=== PATIENT | female | born 1965 | race Caucasian/White ===

== ENCOUNTER 2024-05-30 08:56 | Outpatient (AMB) | payer OTHER, SELFPAY ==
--- NOTE | 2024-05-30 09:04 | A.OFFPC_ITS ---
Vital Signs 05/30/24 09:13 05/30/24 09:15 Height 5 ft 4.76 in Weight 150 lb 8 oz BMI 25.2 BP 128/90 H 130/86 Blood Pressure Location Rt brachial Rt brachial Position Sitting Sitting Respiration 14 Pulse 83 Pulse Source Pulse Oximeter Temp 98 F Temp Source Oral Pulse Oximetry (%) 96 Oxygen Delivery Method Room Air Intake Visit Reasons: Establish care Intake Note: New patient visit Engineering Aide Required: No Allergies No Known Allergies Allergy (Verified 05/30/24 09:05) Medication List - Last Reconciled 05/30/24 by Scarlett Anguiano PA-C acetaminophen (Tylenol Extra Strength) 1,000 mg PO Q6H PRN amitriptyline 10 mg PO BEDTIME atorvastatin 10 mg PO DAILY duloxetine 30 mg PO DAILY metformin ER 500 mg PO DAILY omeprazole 40 mg PO DAILY Tobacco use date assessed: 05/30/24 Dental Screening Dental Screen Date: 05/30/24 Did you have a dental visit in the last 12 months?: Yes Did you have a dental problem in the last 6 months where you did not have access to dental care?: No Was dental information given to patient?: Patient has dentist HPI Establish care HPI Details Patient is a 58 year old female with a significant past medical history of cholelithiasis, dyslipidemia, type 2 diabetes, hypertension, GERD and chronic sinusitis presenting today for a follow up to reestablish care. -She states that that her she has been s ick for the last 3-4 weeks with covid sx and states overall is getting better but has a lingering cough and states she now has thrush. She did go to urgent care and was dx with a uri and told likely viral. Her was positive for COVID but she never was so she thinks that she did have COVID. Neuro: She was last seen by Jan[facility] in October 2023 where she was evaluated for a new daily headache for the last 2 months. She did have labs and a repeat MRI which she states was normal. She is currently on amitriptyline 10 mg at night.. She states that she also now follows with Neurology and has an appointment in July where they are going to discuss stopping the amitriptyline. She has been doing physical therapy for her headaches and that has made a big difference. Whenever she starts to get a symptoms she starts stretching. CV: Blood pressure today in the office is 130/86. Her blood pressures have been elevated in the past and she states that she does not want to go on any medications for this. She likes to control this with diet. Cholesterol is managed with atorvastatin 10 mg. No myalgias. Last LDL less than 100. She was off of her medication for about 3 months but has been taking it for the last week. Endo: She is currently on metformin 500 mg daily and states her last A1c was ?normal ?. She was off for 3 months and restarted last week. She is not monitor blood sugars at home. GI: Has a history of GERD and is on omeprazole. She did follow with GI in the past for this. Mammo: UTD, follows at [facility] Bone density: 2022- states it was WNL Pap: overdue- states she will book Colonoscopy: due in 2 years, had this with Dr. [facility] Medical History (Updated 05/30/24 @ 10:09 by Scarlett Anguiano PA-C) Adhesion of tendon of hand Type 2 diabetes mellitus Multiple rib fractures HTN (hypertension) Hyperglycemia Dyslipidemia Conjunctivitis Cholelithiasis Acute sinusitis Surgical History (Updated 05/29/24 @ 14:36 by Mary Gramajo CMA) Hx of breast reduction, elective Family History (Updated 05/30/24 @ 09:12 by Mary Gramajo CMA) Mother HTN (hypertension) Glioblastoma Father HTN (hypertension) Diabetes Sister Breast cancer Brother Heart attack Other FH: mental illness Social History Housing: [place] ([facility]) Patient Tobacco Use Status: Never used Tobacco e-Cigarette/Vaping Use: Never Used Second Hand Smoke Exposure: No service: No Current occupational status: employed Current occupation: [employer] Current occupational exposures/hazards: Yes Cognitive needs: No Hearing needs: Yes (deaf in right ear) Vision needs: Yes (glasses) Questionnaire PHQ-9 Over the last 2 weeks, how often have you been bothered by any of the following problems? 1. Little interest or pleasure in doing things: not at all 2. Feeling down, depressed, or hopeless: not at all 3. Trouble falling or staying asleep, or sleeping too much: not at all 4. Feeling tired or having little energy: several days 5. Poor appetite or overeating: several days 6. Feeling bad about yourself - or that you are a failure or have let yourself or your family down: not at all 7. Trouble concentrating on things, such as reading the newspaper or watching television: not at all 8. Moving or speaking so slowly that other people could have noticed. Or the opposite - being so fidgety or restless that you have been moving around a lot more than usual: not at all 9. Thoughts that you would be better off or of hurting yourself in some way: not at all Total score: 2 Depression Screening Interpretation: Positive Depression Screening Done: Yes 66355 - PHQ-9 Billing: Yes Source: Developed by Drs. Noel Solorio, Andreina Lamas, Marlon Suarez and colleagues, with an educational smiley from [employer]. Thrive Questionnaire Date Thrive assessed: 05/25/24 I am a: Patient What is your living situation today?: I have a steady place to live Within the past 12 months, did the food you bought not last and you didn't have the money to get more?: Never true Within the past 12 months, did you worry whether your food would run out before you got money to buy more?: Never true Do you have trouble paying for medicines?: No Do you have trouble getting transportation to medical appointments?: No Do you have trouble paying your heating and electricity bill?: No Do you have trouble taking care of your child, family member or friend?: No Do you have trouble with day-to-day activities such as bathing, preparing meals, shopping, managing finances, etc.?: No Are you currently unemployed and looking for a job?: No Are you interested in more education?: No Please select the resources that you would like help with: None Currently or been in a relationship where the following occur: No concerns reported THRIVE Score: 0 AUDIT C Alcohol Use Questionnaire (AUDIT-C) 1. How often do you have a drink containing alcohol?: Monthly or less 2. How many drinks containing alcohol do you have on a typical day when you are drinking?: 1 or 2 3. How often do you have six or more drinks on one occasion?: Never Total Score: 1 AARON-7 AMB Questionnaire AARON-7 Date AARON - 7 assessed: 05/30/24 Feeling nervous, anxious, or on edge: 0 = Not at all Not being able to stop or control worryin = Not at all Worrying too much about different things: 0 = Not at all Trouble relaxin = Not at all Being so restless that it is hard to sit still: 0 = Not at all Feeling afraid as if something awful might happen: 0 = Not at all Source: Developed by Drs. Noel Solorio, Andreina Lamas, Marlon Suarez and colleagues, with an educational smiley from [employer]. AARON-7 Assessment Billing AARON-7 Assessment Tool: AARON-7 Assessment 63122 Physical exam (Primary Care) Vital Signs: Last Vital Signs Temp 98 F 05/30/24 09:13 Pulse 83 05/30/24 09:13 Resp 14 05/30/24 09:13 BP 130/86 05/30/24 09:15 Pulse Ox 96 05/30/24 09:13 Oxygen Delivery Method Room Air 05/30/24 09:13 BMI result Body Mass Index 25.2 Tobacco/Smoking Status: Tobacco use Status Tobacco use date assessed 05/30/24 05/30/24 09:12 Patient Tobacco Use Status Never used Tobacco 05/30/24 09:12 e-Cigarette/Vaping Use Never Used 05/30/24 09:12 PHQ-9: PHQ-9 Score PHQ-9: Total score 2 05/30/24 09:12 Depression Screening Interpretation: Positive Thrive Assessment: Date of Thrive Assessment Date Thrive assessed 05/25/24 05/30/24 09:12 Currently or been in a relationship where the following occur: No concerns reported Const Orientation/consciousness: patient oriented x3 HENMT Other: Nasal mucosa WNL. She does have white patches on the dorsum of the tongue. Head: Yes No palpable skull fracture present Ears: hearing grossly normal bilaterally and TM's normal bilaterally Neck Thyroid: Thyroid normal Lymphatic: no lymphadenopathy noted Resp Auscultation: clear to auscultation bilaterally Cardio Rate: regular rate Rhythm: regular rhythm Heart sounds: S1 normal heart sound present and S2 normal heart sound present GI Inspection: Yes normal to inspection Palpation (GI): Soft to palpation and Other GI palpation findings present (nontender, no cva tenderness) Auscultation: normoactive bowel sounds Rectal Exam - Female: deferred Skin General skin exam: no rashes or lesions noted Neuro General: patient oriented x3, gait normal and no focal motor deficits Coding Level of Care Code Est Pt Level 4 (85306) Complex EM visit Add On G2211 Diagnoses Dyslipidemia E78.5 Controlled type 2 diabetes mellitus without complication, without long-term current use of insulin E11.9 Diabetes mellitus longterm insulin use: without terminal make up operator use Diabetes mellitus complication status: without complication Viral URI with cough J06.9 Thrush B37.0 Additional Codes AARON-7 Assessment Billing - AARON-7 Assessment Tool: AARON-7 Assessment [id number] ([id number]) Assessment & Plan Assessment & Plan (1) Dyslipidemia: Code(s): E78.5 - Hyperlipidemia, unspecified Category: Medical Plan: Was well-controlled with atorvastatin. Last LDL was 80. We will recheck labs today. (2) Controlled type 2 diabetes mellitus: Code(s): E11.9 - Type 2 diabetes mellitus without complications Category: Medical Qualifiers: Diabetes mellitus terminal make up operator insulin use: without terminal make up operator use Diabetes mellitus complication status: without complication Qualified Code(s): E11.9 - Type 2 diabetes mellitus without complications Plan: A1c ordered today. Currently on metformin. Works hard on diet. We will follow up pending test results. (3) Viral URI with cough: Code(s): J06.9 - Acute upper respiratory infection, unspecified Plan: Reports symptom improvement. No physical exam abnormalities noted for signs of a bacterial infection. We will start on Tessalon Perles per her request us it does help with her intermittent cough. (4) Thrush: Code(s): B37.0 - Candidal stomatitis Plan: Nystatin ordered Orders: Orders Microalbumin, Random (w Creat) Today E11.9 - Type 2 diabetes mellitus without complications, E78.5 - Hyperlipidemia, unspecified, I10 - Essential (primary) hypertension Lipid Panel Today E11.9 - Type 2 diabetes mellitus without complications, E78.5 - Hyperlipidemia, unspecified, I10 - Essential (primary) hypertension Comprehensive [place]. Panel Fast Today E11.9 - Type 2 diabetes mellitus without complications, E78.5 - Hyperlipidemia, unspecified, I10 - Essential (primary) hypertension Complete Blood Count Auto Diff Today E11.9 - Type 2 diabetes mellitus without complications, E78.5 - Hyperlipidemia, unspecified, I10 - Essential (primary) hypertension Hemoglobin A1c Today E11.9 - Type 2 diabetes mellitus without complications, E78.5 - Hyperlipidemia, unspecified, I10 - Essential (primary) hypertension TSH reflex Free T4 Today E11.9 - Type 2 diabetes mellitus without complications, E78.5 - Hyperlipidemia, unspecified, I10 - Essential (primary) hypertension Medications: New nystatin swish and spit 5 mL PO QID 14 days 473 mL 0RF albuterol sulfate 90 mcg/actuation 2 puffs inhalation Q6H PRN 8.5 grams 1RF shortness of breath or wheezing omeprazole 20 mg PO BID 90 days 180 caps 0RF benzonatate 100 mg PO TID PRN 30 caps 0RF cough
[2024-05-30 09:13] VITALS: BP 128/90; PULSE 83; RESP 14; TEMP 36.6; O2SAT 96; BMI 25.2
[2024-05-30 09:15] VITALS: BP 130/86
== END 2024-05-30 10:06 | disposition home or self-care (01) ==
PROVIDERS: PCP Physician Assistant; Visit Provider Physician Assistant
DX: E78.5 Hyperlipidemia, unspecified (principal); E11.9 Type 2 diabetes mellitus without complications; J06.9 Acute upper respiratory infection, unspecified; B37.0 Candidal stomatitis

== ENCOUNTER → 2024-05-30 08:56 | Outpatient (BNVA) | payer OTHER, SELFPAY | PROVIDERS: PCP Physician Assistant; Visit Provider Physician Assistant ==

== ENCOUNTER 2024-05-30 09:55 | Outpatient (REF) | payer OTHER, SELFPAY ==
[2024-05-30 11:42] LABS: MANUAL DIFF FLAG NO
[2024-05-30 11:56] LABS: Basophils Percent Auto 0.9 % (0-2); Eosinophils Absolute Auto 0.1 X10*3/uL (0.0-0.4); Eosinophils Percent Auto 1.8 % (0-4); Hematocrit 41.6 % (37.0-47.0); Hemoglobin 14.4 g/dl (12.0-16.0); Imm Gran Abs Auto 0.02 X10*3/uL (0.00-0.03); Imm Gran Pct Auto 0.5 % (0.0-0.4); Lymphocytes Absolute Auto 1.7 X10*3/uL (1.2-4.9); Lymphocytes Percent Auto 37.5 % (20-40); Mean Corpuscular HGB Conc 34.6 g/dl (31.0-35.0); Mean Corpuscular Volume 86.7 fL (80.0-98.0); Mean Platelet Volume 11.2 fL (9.4-12.3); Monocytes Absolute Auto 0.4 X10*3/uL (0.1-1.2); Monocytes Percent Auto 8.4 % (2-11); Neutrophils Absolute Auto 2.3 x10*3/uL (2.0-8.3); Neutrophils Percent Auto 50.9 % (45-73); Platelet Count 222 X10*3/uL (160-400); Red Cell Distribution Width 11.9 % (11.0-16.0); White Blood Count 4.4 X10*3/uL (4.8-10.8)
[2024-05-30 12:07] LABS: Creatinine Urine 138.59 mg/dL; Microalbum/Creatinine Ratio Ur 12.2 ug/mg cr (<30)
[2024-05-30 12:11] LABS: Estimated Average Glucose 194 mg/dL; Hemoglobin A1C 254.1321 umol/L; Hemoglobin A1c % 8.4 % (<6.0); Total Hemoglobin (HGBA1C) 3691.7812 umol/L
[2024-05-30 12:17] LABS: Alanine Aminotransferase 33 U/L (0-31); Albumin Level 4.1 g/dL (3.5-5.0); Alkaline Phosphatase 122 U/L (39-117); Anion Gap 10 (12-20); Aspartate Amino Transferase 26 U/L (5-31); Bilirubin Total 1.3 mg/dL (0.0-1.0); Blood Urea Nitrogen 9 mg/dL (9-16); Calcium 9.5 mg/dL (8.4-10.2); Carbon Dioxide 30 mmol/L (22-29); Chloride 104 mmol/L (96-108); Cholesterol 200 mg/dL (<200); Estimated Glomerular Filt Rate > 60; Glucose Fasting 270 mg/dL (60-99); HDL Cholesterol 65 mg/dL (>40); LDL Cholesterol Calculated 114 mg/dL (<100); Potassium 4.1 mmol/L (3.3-5.1); Sodium 140 mmol/L (135-145); Total Protein 6.9 g/dL (6.5-8.0); Triglycerides 107 mg/dL (<150)
== END 2024-05-30 09:56 | disposition home or self-care (01) ==
LOC: HO.WFDLDS 09:55
PROVIDERS: Visit Provider Physician Assistant
DX: E78.5 Hyperlipidemia, unspecified (principal); E11.9 Type 2 diabetes mellitus without complications; I10 Essential (primary) hypertension; J06.9 Acute upper respiratory infection, unspecified; B37.0 Candidal stomatitis; Z79.84 Long term (current) use of oral hypoglycemic drugs; Z79.899 Other long term (current) drug therapy
CPT/HCPCS: 36415; 80053; 80061; 82043; 82570; 83036; 84443; 85025; 96127

== ENCOUNTER 2024-06-13 09:25 | Outpatient (REF) | payer OTHER, SELFPAY ==
--- NOTE | ~2024-06-13 | US_ITS ---
EXAMINATION: US ABDOMEN COMPLETE CLINICAL INFORMATION: Other specified abnormal findings of blood chemistry COMPARISON: None available. TECHNIQUE: Real-time imaging of the abdominal viscera. FINDINGS: PANCREAS: Visualized portions are unremarkable. ABDOMINAL AORTA: The proximal, mid, and distal segments are normal in caliber. INFERIOR VENA CAVA: Visualized portions are normal. LIVER: The liver is normal in size. The liver contour is normal. There is diffuse increased liver parenchymal echogenicity, consistent with hepatic steatosis. No focal hepatic lesion. There is no intrahepatic biliary duct dilatation seen. GALLBLADDER: The gallbladder is physiologically distended. Multiple mobile gallstones are present. No evidence of gallbladder wall thickening or pericholecystic fluid. COMMON BILE DUCT: Normal in caliber measuring 0.5 cm in diameter. RIGHT KIDNEY: No hydronephrosis. No renal calculi or focal parenchymal lesions. The kidney measures 10.3 cm in maximum dimension. LEFT KIDNEY: No hydronephrosis. No renal calculi or focal parenchymal lesions. The kidney measures 10.1 cm in maximum dimension. SPLEEN: The normal-appearing spleen measures 10.4 cm in maximum dimension. FREE FLUID: None. US/US abdomen complete IMPRESSION: 1. Hepatic steatosis. 2. Cholelithiasis without evidence of acute cholecystitis. Electronically signed by: Gina Reed DO 07/20/2024 04:44 PM [facility]
== END 2024-06-13 09:26 | disposition home or self-care (01) ==
LOC: HO.US 09:25
PROVIDERS: PCP Physician Assistant; Visit Provider Physician Assistant
DX: R79.89 Other specified abnormal findings of blood chemistry (principal); E11.9 Type 2 diabetes mellitus without complications
CPT/HCPCS: 76700

== ENCOUNTER 2024-07-18 10:18 | Outpatient (AMB) | payer OTHER, SELFPAY ==
--- NOTE | 2024-07-18 10:19 | A.OFFVIS_ITS ---
Vital Signs 07/18/24 10:26 Height 5 ft 6 in Weight 159 lb 6 oz BMI 25.7 Intake Visit Reasons: Calculus of gallbladder Intake Note: This patient presents for Calculus of gallbladder. Pt c/o; reports constant RUQ pain radiates towards back, reports occasional nausea specifically in the morning, reports loss of appetite. 06/13/2024: Abd U/S Slip Maker Required: No Accompanied by: Self / Same As Patient Allergies No Known Allergies Allergy (Verified 07/18/24 10:30) Medication List - Last Reconciled 07/18/24 by Roe Heck MD acetaminophen (Tylenol Extra Strength) 1,000 mg PO Q6H PRN albuterol sulfate 90 mcg/actuation 2 puffs inhalation Q6H PRN amitriptyline 10 mg PO BEDTIME atorvastatin 10 mg PO DAILY benzonatate 100 mg PO TID PRN blood sugar diagnostic (FreeStyle Lite Strips) Use daily As directed to check blood glucose blood-glucose meter (FreeStyle Lite Meter kit) Use daily As directed to check blood sugars duloxetine 30 mg PO DAILY lancets (FreeStyle Lancets) use daily as directed to check blood glucose metformin ER 500 mg PO BID nystatin 5 mL PO QID 14 days omeprazole 20 mg PO BID 90 days HPI HPI Calculus of gallbladder: Details: [age] year old female referred for gallstones. She has had this occasional low intensity pain on the right upper quadrant and right side of the abdomen all the way to the back on and off for several months. She has a history of abnormal LFTs as well. Therefore had an ultrasound done by her primary care physician last month. This has not been officially read but this seems to show gallstones She was therefore referred to me She also had a CAT scan done earlier this year in [facility]. She was told that she had a gallstone at that time She is a newly diagnosed diabetic. She also has a history of splenic injury requiring embolization about 10 years ago after a fall from the ceiling. She had rib fractures at that time along with fractures of the wrist. She says that she had developed a blood clot in the left leg and was on Eliquis for about 30 days then She says that she had a micro embolic stroke about 4 years ago with a little bit of weakness of the fingers. She otherwise has had no other residual deficits. 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 [facility] Medical History (Updated 07/18/24 @ 10:50 by Roe Heck MD) Gallstones Adhesion of tendon of hand Type 2 diabetes mellitus Multiple rib fractures HTN (hypertension) Hyperglycemia Dyslipidemia Conjunctivitis Cholelithiasis Acute sinusitis Surgical History Hx of breast reduction, elective Family History Mother HTN (hypertension) Glioblastoma Father HTN (hypertension) Diabetes Sister Breast cancer Brother Heart attack Other FH: mental illness Social History Housing: House ([facility]) Patient Tobacco Use Status: Never used Tobacco e-Cigarette/Vaping Use: Never Used Second Hand Smoke Exposure: No service: No Current occupational status: employed 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 [facility] Current occupational exposures/hazards: Yes Cognitive needs: No Hearing needs: Yes (deaf in right ear) Vision needs: Yes (glasses) Review of Systems Const Denies chills and Denies fever(s) Card Denies chest pain, Denies dyspnea and Denies dyspnea on exertion Resp Denies cough, Denies dyspnea and Denies dyspnea on exertion GI Denies hematochezia and Denies change in bowel habits Denies hematuria Musc Denies back pain and Denies limited range of motion Neuro Denies focal weakness and Denies convulsions Psych Denies depression and Denies mood swings Physical Exam Vital Signs: BMI result Body Mass Index 25.7 Const General: comfortable and no acute distress Orientation/consciousness: patient oriented x3 Neck Neck: Yes no lymphadenopathy Resp Auscultation: clear to auscultation bilaterally Cardio Rhythm: regular rhythm GI Palpation (GI): Soft to palpation, nontender and no guarding Neuro General: patient oriented x3 Assessment & Plan Assessment & Plan (1) Gallstones: Code(s): K80.20 - Calculus of gallbladder without cholecystitis without obstruction Category: Medical Plan: Her ultrasound from last month shows gallstones without cholecystitis. She describes symptoms that appeared to be associated with this. I therefore had a long discussion with her about the technique of laparoscopic cholecystectomy and possible open cholecystectomy. I reviewed the risks including but not limited to bleeding, infections, injury to other organs like the liver, intestines, bile duct, blood clots, pneumonia, strokes, as well as the benefits and alternatives. 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 She has a history of a micro embolic stroke and is a diabetic. We will send her for a preadmission testing therefore. Coding Level of Care Code New Pt Level 3 (75766) Diagnoses Gallstones K80.20
[2024-07-18 10:26] VITALS: BMI 25.7
== END 2024-07-18 10:46 | disposition home or self-care (01) ==
PROVIDERS: PCP Physician Assistant; Visit Provider Surgery
DX: K80.20 Calculus of gallbladder without cholecystitis without obstruction (principal)
CPT/HCPCS: 99203

== ENCOUNTER 2024-08-08 10:23 | Outpatient (AMB) | payer OTHER, SELFPAY ==
--- NOTE | 2024-08-08 10:35 | A.OFFPC_ITS ---
Vital Signs 08/08/24 10:45 Height 5 ft 6 in Weight 156 lb BMI 25.2 BP 122/82 Blood Pressure Location Lt brachial Position Sitting Pulse 88 Pulse Source Pulse Oximeter Temp 99 F Temp Source Oral Intake Visit Reasons: fu from gallbladder removal Intake Note: Follow up after colecystectomy Allergies No Known Allergies Allergy (Verified 07/18/24 10:30) Tobacco use date assessed: 05/30/24 Dental Screening Dental Screen Date: 05/30/24 HPI fu from gallbladder removal HPI Details History of Present Illness The patient is a 58-year-old female presenting with post-operative and upper respiratory symptoms. She underwent a cholecystectomy approximately 2 weeks ago and developed upper respiratory symptoms shortly after. The symptoms include a persistent cough for the past week, which is productive of phlegm, along with a scratchy throat, and upper chest congestion. The patient denies fever, chills, or shortness of breath but reports experiencing subjective hot flashes. The cough is consistent throughout the day. She just does not feel like she is getting better. Her was sick with similar symptoms and and needed to be on medication. Her blood sugar levels post-surgery have been better controlled, decreasing from 166 mg/dL in the morning to as low as 124 mg/dL post-surgery. She is currently on metformin 500 mg twice daily, with a plan to increase the dose to 1000 mg twice daily to optimize glucose control. The patient also reports a persistent left knee pain, a concern due to a past history of blood clots in the same leg following a past splenic injury Seven years ago. She notes the pain has been in the posterior aspect of the knee, worsening post-surgery, but recent ultrasound has ruled out recurrent thrombosis. she states that with a lot of walking the pain will flare. She feels like it is just arthritis but wants to know. Her hyperlipidemia is managed with atorvastatin 10 mg, although it requires refill approval. Health Maintenance Social History - Works in the Intensive Care Unit (ICU) . - Attempts a diet compatible with diabet es management and post-cholecystectomy, although struggling with lack of appetite and rapid gastrointestinal transit. Review of Systems - Respiratory: Reports cough with fine s putum, scratchy throat, upper chest congestion. Denies shortness of breath. - Neurological: Reports mild headaches, started with the current illness. - Gastric: Reports diarrhea post-cholecy stectomy. - General: Reports subjective hot flashe s. Denies fever or chills. Results - Leg ultrasound: No evidence of blood clots. Plan - Initiate antibiotic therapy with doxyc ycline for ten days to cover suspected pneumonia and sinus infection. - Manage diabetes by increasing metformi n dosage to 1000 mg twice daily with follow-up lab testing to assess the control of blood glucose and kidney function. - Prescribe Flonase nasal spray for sinu s inflammation, dosing for at least two weeks. - Prescribe Tessalon Perles for symptoma tic management of cough. - Advise on pain management for knee and suggest an orthopedic consultation if symptoms persist or worsen. - Plan for chest and knee X-ray to [facility] evaluate respiratory symptoms and knee pain. - Discussed potential injections for kne e arthritis pain if confirmed. Patient was informed and verbally consented to the use of an ambient scribe for clinic note documentation during this visit. Discussion Notes During today's visit, I discussed the possible diagnosis of pneumonia due to mild wheezing heard upon examination and the presence of upper chest symptoms. I recommended starting doxycycline to target this along with any sinus infection. I reviewed the increase in metformin to better manage her diabetes, explaining that her blood sugars could improve further post-surgery. I discussed the use of Flonase for nasal inflammation and Tessalon Perles for cough suppression, detailing how to properly use the nasal spray. We also planned for chest and knee X-rays to aid in diagnosis, particularly concerning the recurrent knee pain following her history of blood clots. I highlighted potential treatment and follow-up steps, maintaining focus on the importance of regular monitoring of blood glucose and caution with dietary changes following gallbladder surgery. I advised a consultation with orthopedics should the knee discomfort continue or escalate. Patient Instructions - Start doxycycline as prescribed and co mplete the full course. - Adjust metformin dose to 1000 mg twice daily. - Use Flonase nasal spray daily for two weeks, as instructed. - Take Tessalon Perles up to three times daily for cough management if needed. - Attend chest and knee X-ray appointmen ts promptly. - Monitor symptoms closely, especially k nee pain, and follow up if they worsen. - Maintain a balanced diet low in fats t o accommodate post-cholecystectomy changes. - Rest and avoid heavy lifting despite r eturning to work. [facility] Medical History (Updated 08/08/24 @ 11:11 by Scarlett Anguiano PA-C) Gallstones Adhesion of tendon of hand Type 2 diabetes mellitus Multiple rib fractures HTN (hypertension) Hyperglycemia Dyslipidemia Conjunctivitis Cholelithiasis Acute sinusitis Surgical History (Updated 08/08/24 @ 11:11 by Scarlett Anguiano PA-C) Hx of cholecystectomy Hx of breast reduction, elective Family History Mother HTN (hypertension) Glioblastoma Father HTN (hypertension) Diabetes Sister Breast cancer Brother Heart attack Other FH: mental illness Social History Housing: House ([facility]) Patient Tobacco Use Status: Never used Tobacco e-Cigarette/Vaping Use: Never Used Second Hand Smoke Exposure: No service: No Current occupational status: employed Current occupation: [employer] Current occupational exposures/hazards: Yes Cognitive needs: No Hearing needs: Yes (deaf in right ear) Vision needs: Yes (glasses) Questionnaire Thrive Questionnaire Date Thrive assessed: 05/25/24 I am a: Patient What is your living situation today?: I have a steady place to live Within the past 12 months, did the food you bought not last and you didn't have the money to get more?: Never true Within the past 12 months, did you worry whether your food would run out before you got money to buy more?: Never true Do you have trouble paying for medicines?: No Do you have trouble getting transportation to medical appointments?: No Do you have trouble paying your heating and electricity bill?: No Do you have trouble taking care of your child, family member or friend?: No Do you have trouble with day-to-day activities such as bathing, preparing meals, shopping, managing finances, etc.?: No Are you currently unemployed and looking for a job?: No Are you interested in more education?: No Please select the resources that you would like help with: None Currently or been in a relationship where the following occur: No concerns reported THRIVE Score: 0 AARON-7 AMB Questionnaire AARON-7 Date AARON - 7 assessed: 05/30/24 Becoming easily annoyed or irritable: 1 = Several days Source: Developed by Drs. Noel Solorio, Andreina Lamas, Marlon Suarez and colleagues, with an educational smiley from [employer]. Physical exam (Primary Care) Vital Signs: Last Vital Signs Temp 99 F 08/08/24 10:45 Pulse 88 08/08/24 10:45 BP 122/82 08/08/24 10:45 BMI result Body Mass Index 25.2 Tobacco/Smoking Status: Tobacco use Status Tobacco use date assessed 05/30/24 08/08/24 10:40 Patient Tobacco Use Status Never used Tobacco 08/08/24 10:40 e-Cigarette/Vaping Use Never Used 08/08/24 10:40 Thrive Assessment: Date of Thrive Assessment Date Thrive assessed 05/25/24 08/08/24 10:40 Currently or been in a relationship where the following occur: No concerns reported Const Orientation/consciousness: patient oriented x3 HENMT Other: Nasal mucosa erythematous and edematous. Purulent drainage noted. Maxillary sinus tenderness present. Ears: hearing grossly normal bilaterally Neck Thyroid: Thyroid normal Lymphatic: no lymphadenopathy noted Resp Other: Normal respiratory effort. Able to speak in full sentences. Scattered rhonchi on the left which do appear to clear with coughing. Cardio Rate: regular rate Rhythm: regular rhythm Heart sounds: S1 normal heart sound present and S2 normal heart sound present GI Inspection: Yes normal to inspection Palpation (GI): Soft to palpation and Other GI palpation findings present (nontender, no cva tenderness) Auscultation: normoactive bowel sounds Rectal Exam - Female: deferred Skin General skin exam: no rashes or lesions noted Neuro General: patient oriented x3, gait normal and no focal motor deficits Coding Level of Care Code Est Pt Level 4 (91616) Complex EM visit Add On G2211 Diagnoses Controlled type 2 diabetes mellitus without complication, without long-term current use of insulin E11.9 Diabetes mellitus alf insulin use: without oysterman use Diabetes mellitus complication status: without complication S/P laparoscopic cholecystectomy Z90.49 Lung infection J18.9 Posterior left knee pain M25.562 Assessment & Plan Assessment & Plan (1) Controlled type 2 diabetes mellitus: Code(s): E11.9 - Type 2 diabetes mellitus without complications Category: Medical Qualifiers: Diabetes mellitus oysterman insulin use: without oysterman use Diabetes mellitus complication status: without complication Qualified Code(s): E11.9 - Type 2 diabetes mellitus without complications (2) S/P laparoscopic cholecystectomy: Code(s): Z90.49 - Acquired absence of other specified parts of digestive tract Category: Surgical (3) Lung infection: Code(s): J18.9 - Pneumonia, unspecified organism Category: Medical (4) Posterior left knee pain: Code(s): M25.562 - Pain in left knee Category: Medical Plan . Orders: Orders XR knee LT 2V Today J18.9 - Pneumonia, unspecified organism, M25.561 - Pain in right knee, M25.562 - Pain in left knee XR chest 2V Today J18.9 - Pneumonia, unspecified organism, M25.562 - Pain in left knee Referrals Orthopedics Referral M25.562 - Pain in left knee Medications: New metformin 1,000 mg PO BIDWMEAL 180 tabs 2RF doxycycline hyclate 100 mg PO BID 20 tabs 0RF fluticasone propionate 50 mcg/actuation (Flonase Allergy Relief) administer into each nostril 2 sprays intranasal DAILY 16 grams 0RF atorvastatin 10 mg PO DAILY 90 tabs 3RF benzonatate 100 mg PO TID PRN 30 caps 0RF cough Discontinued metformin ER Discontinued Reason: Doctor's Order 500 mg PO BID 180 tabs 0RF
[2024-08-08 10:45] VITALS: BP 122/82; PULSE 88; TEMP 37.2; BMI 25.2
== END 2024-08-08 11:22 | disposition home or self-care (01) ==
PROVIDERS: PCP Physician Assistant; Visit Provider Physician Assistant
DX: E11.9 Type 2 diabetes mellitus without complications (principal); Z90.49 Acquired absence of other specified parts of digestive tract; J18.9 Pneumonia, unspecified organism; M25.562 Pain in left knee

== ENCOUNTER 2024-09-12 07:59 | Outpatient (AMB) | payer OTHER, SELFPAY ==
--- NOTE | 2024-09-12 08:13 | MHC.PC.OV ---
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 Allergies No Known Allergies Allergy (Verified 09/12/24 08:13) Medication List - Last Reconciled 09/12/24 by Scarlett Anguiano PA-C acetaminophen (Tylenol Extra Strength) 1,000 mg PO Q6H PRN albuterol sulfate 90 mcg/actuation 2 puffs inhalation Q6H PRN amitriptyline 10 mg PO BEDTIME atorvastatin 10 mg PO DAILY benzonatate 100 mg PO TID PRN blood sugar diagnostic (FreeStyle Lite Strips) Use daily As directed to check blood glucose blood-glucose meter (FreeStyle Lite Meter kit) Use daily As directed to check blood sugars fluticasone propionate 50 mcg/actuation (Flonase Allergy Relief) 2 sprays intranasal DAILY lancets (FreeStyle Lancets) use daily as directed to check blood glucose metformin 500 mg PO BID 90 days omeprazole 40 mg (2 x 20 mg) PO BID 90 days Tobacco use date assessed: 05/30/24 Dental Screening Dental Screen Date: 05/30/24 HPI physical HPI Details Patient is a 58-year-old female with a significant past medical history of type 2 diabetes, hyperlipidemia and GERD presenting today for a physical exam. Since her gallbladder surgery she states that she has had an increase in diarrhea. She has diarrhea every day and it can be worse depending on what she eats. She also was treated with numerous antibiotics post cholecystectomy due to pneumonia and wonders if part of the diarrhea is caused by that. She is finally off of all antibiotics. She did have a CT scan of the abdomen and pelvis which was negative, negative C diff testing. CV: Blood pressure today in the office is 108/80. Cholesterol is managed with atorvastatin 10 mg. This is relatively new and she has not yet had her lipids are LFTs rechecked. Endo: Last A1c was 8.4. At that point increase metformin to 1000 mg twice a day. GI: Managing GERD with the omeprazole 40 mg. Neuro: On amitriptyline 10 mg per management of headaches. Has followed with Neurology Mammogram: at [facility] 2023- scheduled sep 2024 Bone density: UTD, at [facility] 2023 - wnl Pap: overdue- states will book Colonoscopy: due in 2025, had this with Dr. Diamond [facility] Medical History (Updated 09/12/24 @ 08:35 by Scarlett Anguiano PA-C) Gallstones Adhesion of tendon of hand Type 2 diabetes mellitus Multiple rib fractures HTN (hypertension) Hyperglycemia Dyslipidemia Conjunctivitis Cholelithiasis Acute sinusitis Surgical History (Updated 08/08/24 @ 11:11 by Scarlett Anguiano PA-C) Hx of cholecystectomy Hx of breast reduction, elective Family History Mother HTN (hypertension) Glioblastoma Father HTN (hypertension) Diabetes Sister Breast cancer Brother Heart attack Other FH: mental illness Social History Housing: House ([facility]) Alcohol intake: current Patient Tobacco Use Status: Never used Tobacco e-Cigarette/Vaping Use: Never Used Second Hand Smoke Exposure: No service: No Current occupational status: employed Current occupation: HOTEL SERVICE MANAGER [employer] Current occupational exposures/hazards: Yes Cognitive needs: No Hearing needs: Yes (deaf in right ear) Vision needs: Yes (glasses) Questionnaire PHQ-9 Over the last 2 weeks, how often have you been bothered by any of the following problems? 1. Little interest or pleasure in doing things: not at all 2. Feeling down, depressed, or hopeless: not at all 3. Trouble falling or staying asleep, or sleeping too much: several days 4. Feeling tired or having little energy: not at all 5. Poor appetite or overeating: several days 6. Feeling bad about yourself - or that you are a failure or have let yourself or your family down: not at all 7. Trouble concentrating on things, such as reading the newspaper or watching television: not at all 8. Moving or speaking so slowly that other people could have noticed. Or the opposite - being so fidgety or restless that you have been moving around a lot more than usual: not at all 9. Thoughts that you would be better off or of hurting yourself in some way: not at all Total score: 2 Depression Screening Interpretation: Negative Depression Screening Done: Yes 02837 - PHQ-9 Billing: Yes Source: Developed by Drs. Noel Solorio, Andreina Lamas, Marlon Suarez and colleagues, with an educational smiley from [employer]. Thrive Questionnaire Date Thrive assessed: 09/12/24 I am a: Patient What is your living situation today?: I have a steady place to live Within the past 12 months, did the food you bought not last and you didn't have the money to get more?: Never true Within the past 12 months, did you worry whether your food would run out before you got money to buy more?: Never true Do you have trouble paying for medicines?: No Do you have trouble getting transportation to medical appointments?: No Do you have trouble paying your heating and electricity bill?: No Do you have trouble taking care of your child, family member or friend?: No Do you have trouble with day-to-day activities such as bathing, preparing meals, shopping, managing finances, etc.?: No Are you currently unemployed and looking for a job?: No Are you interested in more education?: No Please select the resources that you would like help with: None Currently or been in a relationship where the following occur: No concerns reported THRIVE Score: 0 AUDIT C Alcohol Use Questionnaire (AUDIT-C) 1. How often do you have a drink containing alcohol?: Monthly or less 2. How many drinks containing alcohol do you have on a typical day when you are drinking?: 1 or 2 3. How often do you have six or more drinks on one occasion?: Never Total Score: 1 AARON-7 AMB Questionnaire AARON-7 Date AARON - 7 assessed: 09/12/24 Feeling nervous, anxious, or on edge: 0 = Not at all Not being able to stop or control worryin = Not at all Worrying too much about different things: 0 = Not at all Trouble relaxin = Not at all Being so restless that it is hard to sit still: 0 = Not at all Becoming easily annoyed or irritable: 1 = Several days Feeling afraid as if something awful might happen: 0 = Not at all Total AARON-7 score (0-4 normal; 5-9 mild; 10-14 moderate; 15-21 severe): 1 Source: Developed by Andreina Mesa Kurt Kroenke and colleagues, with an educational smiley from [employer] system [employer]. AARON-7 Assessment Billing AARON-7 Assessment Tool: AARON-7 Assessment 08233 Physical exam (Primary Care) Vital Signs: Last Vital Signs Pulse 88 09/12/24 08:14 BP 108/80 09/12/24 08:14 Pulse Ox 97 09/12/24 08:14 Oxygen Delivery Method Room Air 09/12/24 08:14 BMI result Body Mass Index 24.7 Tobacco/Smoking Status: Tobacco use Status Tobacco use date assessed 05/30/24 09/12/24 08:16 Patient Tobacco Use Status Never used Tobacco 09/12/24 08:16 e-Cigarette/Vaping Use Never Used 09/12/24 08:16 PHQ-9: PHQ-9 Score PHQ-9: Total score 2 09/12/24 08:38 Depression Screening Interpretation: Negative Thrive Assessment: Date of Thrive Assessment Date Thrive assessed 05/25/24 09/12/24 08:16 Currently or been in a relationship where the following occur: No concerns reported Const Orientation/consciousness: patient oriented x3 HENMT Ears: hearing grossly normal bilaterally and TM's normal bilaterally General nose exam: No nasal polyps present Face and sinus: Yes sinuses nontender Mouth: Normal oral and palatal mucosa present Eyes Pupils: Equal, round and reactive pupils present EOM: EOMs intact bilaterally Neck Neck: Yes full ROM and Yes no lymphadenopathy Thyroid: Thyroid normal Chest Chest palpation & inspection: normal inspection of the chest Resp Auscultation: clear to auscultation bilaterally Cardio Rate: regular rate Rhythm: regular rhythm Heart sounds: S1 normal heart sound present and S2 normal heart sound present Peripheral pulses: Peripheral pulses 2+ throughout GI Other: Soft, nontender Auscultation: normal bowel sounds Rectal Exam - Female: deferred General: Yes no CVA tenderness Back/Spine/Pelvis Other: Nontender Back: no CVA tenderness Skin General skin exam: no rashes or lesions noted Neuro General: patient oriented x3, gait normal, CN's II-XI intact bilaterally and deep tendon reflexes 2+ bilaterally Cranial nerves: Yes Equal, round and reactive pupils present Motor exam (neuro): 5/5 motor strength present throughout Sensory Exam: double simultaneous stimulation for sensation normal Coordination: [id number] test normal and Romberg test negative Extrem General: Yes normal to inspection and Yes full ROM Psych Affect: normal affect Attitude: cooperative Thought process: Normal thought process present Thought content: Normal thought content present Insight: Good insight present (Psych) Judgement: Good judgement present (Psych) Results Reviewed Results Reviewed: Laboratory Tests 05/30/24 09:57 WBC 4.4 L RBC 4.80 Hgb 14.4 Hct 41.6 Plt Count 222 Sodium 140 Potassium 4.1 Chloride 104 Carbon Dioxide 30 H Anion Gap 10 L BUN 9 Creatinine 0.74 Estimated GFR > 60 Fasting Glucose 270 H Hemoglobin A1c % 8.4 H Calcium 9.5 Total Bilirubin 1.3 H AST 26 ALT 33 H Alkaline Phosphatase 122 H Total Protein 6.9 Albumin 4.1 Triglycerides 107 Cholesterol 200 H LDL Cholesterol, Calc 114 H HDL Cholesterol 65 TSH 0.40 US/US abdomen complete IMPRESSION: 1. Hepatic steatosis. 2. Cholelithiasis without evidence of acute cholecystitis. Coding Level of Care Code Est Pt Prev Care 40-64y(36548) Diagnoses Routine general medical examination at a health care facility Z00.00 Controlled type 2 diabetes mellitus without complication, without long-term current use of insulin E11.9 Diabetes mellitus senior care insulin use: without senior care use Diabetes mellitus complication status: without complication Dyslipidemia E78.5 Diarrhea R19.7 Additional Codes PHQ-9 - 51261 - PHQ-9 Billing: Yes ([id number]) AARON-7 Assessment Billing - AARON-7 Assessment Tool: AARON-7 Assessment 42243 ([id number]) Assessment & Plan Assessment & Plan (1) Routine general medical examination at a health care facility: Code(s): Z00.00 - Encounter for general adult medical examination without abnormal findings Plan: Health maintenance reviewed. Labs reviewed. Advised patient to follow up with OBGYN. (2) Controlled type 2 diabetes mellitus: Code(s): E11.9 - Type 2 diabetes mellitus without complications Category: Medical Qualifiers: Diabetes mellitus joint terminal attack controller insulin use: without joint terminal attack controller use Diabetes mellitus complication status: without complication Qualified Code(s): E11.9 - Type 2 diabetes mellitus without complications Plan: We will reduce her metformin to 500 mg twice a day just in case this is causing some of the symptoms of diarrhea. Her blood sugar she reports around 100 in the morning fasting. She is being better with her diet. I will have her follow up to be reassessed in 1 month. (3) Dyslipidemia: Code(s): E78.5 - Hyperlipidemia, unspecified Category: Medical Plan: Lipids and LFTs ordered. (4) Diarrhea: Code(s): R19.7 - Diarrhea, unspecified Plan: We will try reducing the metformin to see if that helps. Advised patient to start a probiotic. One-month follow up. She has had a workup for this through General surgery. We did discuss that if symptoms persist we will discuss referral to GI and possibly trying Questran as this is likely related to post cholecystectomy. Medications: New metformin 500 mg PO BID 90 days 180 tabs 1RF Discontinued metformin Discontinued Reason: Doctor's Order 1,000 mg PO BIDWMEAL 180 tabs 2RF
[2024-09-12 08:14] VITALS: BP 108/80; PULSE 88; O2SAT 97; BMI 24.7
== END 2024-09-12 08:44 | disposition home or self-care (01) ==
PROVIDERS: PCP Physician Assistant; Visit Provider Physician Assistant
DX: Z00.00 Encounter for general adult medical examination without abnormal findings (principal); E11.9 Type 2 diabetes mellitus without complications; E78.5 Hyperlipidemia, unspecified; R19.7 Diarrhea, unspecified

== ENCOUNTER 2024-09-12 09:29 | Outpatient (REF) | payer OTHER, SELFPAY ==
[2024-09-12 12:38] LABS: Estimated Average Glucose 143 mg/dL; Hemoglobin A1C 188.3214 umol/L; Hemoglobin A1c % 6.6 % (<6.0); Total Hemoglobin (HGBA1C) 3882.6787 umol/L
[2024-09-12 13:18] LABS: Alanine Aminotransferase 29 U/L (0-31); Albumin Level 4.3 g/dL (3.5-5.0); Alkaline Phosphatase 105 U/L (39-117); Anion Gap 9 (12-20); Aspartate Amino Transferase 29 U/L (5-31); Bilirubin Total 0.9 mg/dL (0.0-1.0); Blood Urea Nitrogen 10 mg/dL (9-16); Calcium 9.9 mg/dL (8.4-10.2); Carbon Dioxide 27 mmol/L (22-29); Chloride 109 mmol/L (96-108); Cholesterol 151 mg/dL (<200); Estimated Glomerular Filt Rate > 60; Glucose Fasting 143 mg/dL (60-99); HDL Cholesterol 52 mg/dL (>40); LDL Cholesterol Calculated 78 mg/dL (<100); Potassium 4.3 mmol/L (3.3-5.1); Sodium 141 mmol/L (135-145); Total Protein 7.4 g/dL (6.5-8.0); Triglycerides 107 mg/dL (<150)
== END 2024-09-12 09:30 | disposition home or self-care (01) ==
LOC: HO.WFDLDS 09:29
PROVIDERS: Visit Provider Physician Assistant
DX: E11.9 Type 2 diabetes mellitus without complications (principal); E78.5 Hyperlipidemia, unspecified
CPT/HCPCS: 36415; 80053; 80061; 83036

== ENCOUNTER 2024-09-12 11:01 | Outpatient (REF) | payer OTHER, SELFPAY | END 2024-09-12 11:02 | disposition home or self-care (01) | LOC: HO.HOSX 11:01 | PROVIDERS: Visit Provider Physician Assistant | DX: Z00.00 Encounter for general adult medical examination without abnormal findings (principal); E11.9 Type 2 diabetes mellitus without complications; E78.5 Hyperlipidemia, unspecified; R19.7 Diarrhea, unspecified; Z79.84 Long term (current) use of oral hypoglycemic drugs | CPT/HCPCS: 96127 ==

== ENCOUNTER 2024-10-17 14:40 | Outpatient (AMB) | payer OTHER, SELFPAY ==
--- NOTE | 2024-10-17 14:46 | MHC.PC.OV ---
Vital Signs 10/17/24 14:52 Height 5 ft 4 in Weight 149 lb BMI 25.6 BP 128/90 H Blood Pressure Location Rt brachial Position Sitting Respiration 16 Pulse 97 Pulse Source Pulse Oximeter Temp 98.2 F Temp Source Oral Pulse Oximetry (%) 97 Oxygen Delivery Method Room Air Intake Visit Reasons: gi sx, dm Intake Note: patient here for follow up on DM and GI issues Fisher Trawl Line Required: No Is last menstrual period known: No Post menopausal: No Patient : No Allergies No Known Allergies Allergy (Verified 10/17/24 14:50) Medication List - Last Reconciled 10/17/24 by Scarlett Anguiano PA-C acetaminophen (Tylenol Extra Strength) 1,000 mg PO Q6H PRN albuterol sulfate 90 mcg/actuation 2 puffs inhalation Q6H PRN amitriptyline 10 mg PO BEDTIME atorvastatin 10 mg PO DAILY blood sugar diagnostic (FreeStyle Lite Strips) Use daily As directed to check blood glucose blood-glucose meter (FreeStyle Lite Meter kit) Use daily As directed to check blood sugars lancets (FreeStyle Lancets) use daily as directed to check blood glucose metformin 500 mg PO BID 90 days omeprazole 40 mg (2 x 20 mg) PO BID 90 days Tobacco use date assessed: 10/17/24 Dental Screening Dental Screen Date: 10/17/24 Did you have a dental visit in the last 12 months?: Yes Did you have a dental problem in the last 6 months where you did not have access to dental care?: No Was dental information given to patient?: Patient has dentist HPI gi sx, dm HPI Details Patient is a 58-year-old female with a significant past medical history of type 2 diabetes, hyperlipidemia and GERD presenting today for a Follow up. Since her gallbladder surgery she states that she has had an increase in diarrhea. She has diarrhea every day and it can be worse depending on what she eats. She also was treated with numerous antibiotics post cholecystectomy due to pneumonia and wonders if part of the diarrhea is caused by that. She is finally off of all antibiotics. She did have a CT scan of the abdomen and pelvis which was negative, negative C diff testing. She does report today that yesterday she had a feeling of doom. States that she felt this complete body weakness and was unable to do anything. She was lying in the couch and felt like she was going to lose consciousness. She did not seek emergent medical care. No nausea, vomiting, headache, vision changes, chest pain or palpitations. She says it truly felt like she was going to . She denies any one-sided weakness, numbness or tingling. States that she just generally felt very weak and unable to do anything. She does endorse chest pain with deep breathing. This has been going on for the last few weeks. It is in the right scapular area. No injury. She also reports today that her right hand is painful. About one-month ago she landed on her hand after she tripped over the dog. CV: Blood pressure today in the office is 108/80. Cholesterol is managed with atorvastatin 10 mg. This is relatively new and she has not yet had her lipids are LFTs rechecked. Endo: Last A1c was 8.4. At that point increase metformin to 1000 mg twice a day. GI: Managing GERD with the omeprazole 40 mg. Neuro: On amitriptyline 10 mg per management of headaches. Has followed with Neurology [place] [facility] [place] Bone density: UTD, [place] [facility] [place] - wnl Pap: overdue- states will book Colonoscopy: due in 2025, had this with Dr. Diamond [facility] Medical History (Updated 10/17/24 @ 15:23 by Scarlett Anguiano PA-C) Gallstones Adhesion of tendon of hand Type 2 diabetes mellitus Multiple rib fractures HTN (hypertension) Hyperglycemia Dyslipidemia Conjunctivitis Cholelithiasis Acute sinusitis Surgical History Hx of cholecystectomy Hx of breast reduction, elective Family History Mother HTN (hypertension) Glioblastoma Father HTN (hypertension) Diabetes Sister Breast cancer Brother Heart attack Other FH: mental illness Social History (Updated 09/12/24 @ 08:55 by Mary Gramajo CMA) Housing: House ([facility]) Alcohol intake: current Patient Tobacco Use Status: Never used Tobacco e-Cigarette/Vaping Use: Never Used Second Hand Smoke Exposure: No Use of substances other than those prescribed or required for medical reasons: No Patient : No service: No Current occupational status: employed Current occupation: [employer] Current occupational exposures/hazards: Yes Cognitive needs: No Hearing needs: Yes (deaf in right ear) Vision needs: Yes (glasses) Questionnaire Thrive Questionnaire Date Thrive assessed: 09/08/24 I am a: Patient What is your living situation today?: I have a steady place to live Within the past 12 months, did the food you bought not last and you didn't have the money to get more?: Never true Within the past 12 months, did you worry whether your food would run out before you got money to buy more?: Never true Do you have trouble paying for medicines?: No Do you have trouble getting transportation to medical appointments?: No Do you have trouble paying your heating and electricity bill?: No Do you have trouble taking care of your child, family member or friend?: No Do you have trouble with day-to-day activities such as bathing, preparing meals, shopping, managing finances, etc.?: No Are you currently unemployed and looking for a job?: No Are you interested in more education?: No Please select the resources that you would like help with: None Currently or been in a relationship where the following occur: No concerns reported THRIVE Score: 0 AARON-7 AMB Questionnaire AARON-7 Date AARON - 7 assessed: 09/12/24 Source: Developed by Drs. Noel Solorio, Andreina Lamas, Marlon Suarez and colleagues, with an educational smiley from [employer]. Physical exam (Primary Care) Vital Signs: Last Vital Signs Temp 98.2 F 10/17/24 14:52 Pulse 97 10/17/24 14:52 Resp 16 10/17/24 14:52 BP 128/90 H 10/17/24 14:52 Pulse Ox 97 10/17/24 14:52 Oxygen Delivery Method Room Air 10/17/24 14:52 BMI result Body Mass Index 25.6 Tobacco/Smoking Status: Tobacco use Status Tobacco use date assessed 10/17/24 10/17/24 14:55 Patient Tobacco Use Status Never used Tobacco 10/17/24 14:47 e-Cigarette/Vaping Use Never Used 10/17/24 14:47 Thrive Assessment: Date of Thrive Assessment Date Thrive assessed 09/08/24 10/17/24 14:47 Currently or been in a relationship where the following occur: No concerns reported Const Orientation/consciousness: patient oriented x3 HENMT Ears: hearing grossly normal bilaterally Neck Thyroid: Thyroid normal Lymphatic: no lymphadenopathy noted Resp Auscultation: clear to auscultation bilaterally Cardio Rate: regular rate Rhythm: regular rhythm Heart sounds: S1 normal heart sound present and S2 normal heart sound present GI Inspection: Yes normal to inspection Palpation (GI): Soft to palpation and Other GI palpation findings present (nontender, no cva tenderness) Auscultation: normoactive bowel sounds Rectal Exam - Female: deferred Skin General skin exam: no rashes or lesions noted Neuro General: patient oriented x3, gait normal and no focal motor deficits Coding Level of Care Code Est Pt Level 5 (22185) Complex EM visit Add On G2211 Diagnoses Diarrhea R19.7 Lump of skin of back R22.2 Pre-syncope R55 Fatigue R53.83 Chest pain made worse by breathing R07.1 Right hand pain M79.641 Assessment & Plan Assessment & Plan (1) Diarrhea: Code(s): R19.7 - Diarrhea, unspecified Category: Medical Plan: we will try Questran. Discussed risks and benefits and adverse effects of this medication.. It will have patient follow up with GI. (2) Lump of skin of back: Code(s): R22.2 - Localized swelling, mass and lump, trunk Category: Medical Plan: Ultrasound ordered. Referral to General surgery. It has been there for about 3 months And is tender. (3) Pre-syncope: Code(s): R55 - Syncope and collapse Category: Medical Plan: EKG today in office normal sinus rhythm. EKG interpreted myself and Dr. Pinedo. Labs ordered today. Holter monitor ordered. We will follow up pending test results. (4) Fatigue: Code(s): R53.83 - Other fatigue Category: Medical Plan: As above. (5) Chest pain made worse by breathing: Code(s): R07.1 - Chest pain on breathing Category: Medical Plan: As above. Labs, EKG and chest x-ray ordered. Short term follow up. Has had a negative cardiac workup a couple years ago with a stress test and an echo. (6) Right hand pain: Code(s): M79.641 - Pain in right hand Category: Medical Plan: X-ray ordered Plan 60 minutes spent today in [id number] time discussing list of her concerns and workup. Orders: Orders Complete Blood Count Auto Diff Today R19.7 - Diarrhea, unspecified, R22.2 - Localized swelling, mass and lump, trunk, R53.83 - Other fatigue, R55 - Syncope and collapse Comprehensive Met. Panel Today R19.7 - Diarrhea, unspecified, R22.2 - Localized swelling, mass and lump, trunk, R53.83 - Other fatigue, R55 - Syncope and collapse Ferritin Today R19.7 - Diarrhea, unspecified, R22.2 - Localized swelling, mass and lump, trunk, R53.83 - Other fatigue, R55 - Syncope and collapse UA CC w/rflx Micro + Cult Today R19.7 - Diarrhea, unspecified, R22.2 - Localized swelling, mass and lump, trunk, R53.83 - Other fatigue, R55 - Syncope and collapse, Z13.220 - Encounter for screening for lipoid disorders TSH reflex Free T4 Today R19.7 - Diarrhea, unspecified, R22.2 - Localized swelling, mass and lump, trunk, R53.83 - Other fatigue, R55 - Syncope and collapse US soft tiss head and/or neck Today R22.2 - Localized swelling, mass and lump, trunk D Dimer High Sensitivity Today R19.7 - Diarrhea, unspecified, R22.2 - Localized swelling, mass and lump, trunk, R53.83 - Other fatigue, R55 - Syncope and collapse Erythrocyte Sedimentation Rate Today R19.7 - Diarrhea, unspecified, R22.2 - Localized swelling, mass and lump, trunk, R53.83 - Other fatigue, R55 - Syncope and collapse Vitamin B12 and Folate Today R19.7 - Diarrhea, unspecified, R22.2 - Localized swelling, mass and lump, trunk, R53.83 - Other fatigue, R55 - Syncope and collapse IRON PROFILE Today R19.7 - Diarrhea, unspecified, R22.2 - Localized swelling, mass and lump, trunk, R53.83 - Other fatigue, R55 - Syncope and collapse Magnesium Today R19.7 - Diarrhea, unspecified, R22.2 - Localized swelling, mass and lump, trunk, R53.83 - Other fatigue, R55 - Syncope and collapse XR chest 2V Today R07.1 - Chest pain on breathing XR hand RT min 3V Today M79.641 - Pain in right hand ECG holter monitor 24 hour Today R07.1 - Chest pain on breathing, R55 - Syncope and collapse Referrals Gastroenterology Referral R19.7 - Diarrhea, unspecified, Z90.49 - Acquired absence of other specified parts of digestive tract General Surgery Referral R22.2 - Localized swelling, mass and lump, trunk Medications: New cholestyramine (with sugar) 4 gram (Questran) administer w/meal; avoid other meds within 1hr before or 4-6hr after dose 4 grams PO BID 368.76 grams 1RF
[2024-10-17 14:52] VITALS: BP 128/90; PULSE 97; RESP 16; TEMP 36.8; O2SAT 97; BMI 25.6
== END 2024-10-17 16:33 | disposition home or self-care (01) ==
PROVIDERS: PCP Physician Assistant; Visit Provider Physician Assistant
DX: R19.7 Diarrhea, unspecified (principal); R22.2 Localized swelling, mass and lump, trunk; R55 Syncope and collapse; R53.83 Other fatigue; R07.1 Chest pain on breathing; M79.641 Pain in right hand

== ENCOUNTER → 2024-10-17 14:40 | Outpatient (BNVA) | payer OTHER, SELFPAY | PROVIDERS: PCP Physician Assistant; Visit Provider Physician Assistant ==

== ENCOUNTER 2024-10-18 10:56 | Outpatient (REF) | payer OTHER, SELFPAY ==
[2024-10-18 14:29] LABS: MANUAL DIFF FLAG NO
[2024-10-18 14:38] LABS: Appearance Urine Clear; Color Urine Yellow; Glucose Urine UA Negative (Negative); Leukocyte Esterase Urine Negative (Negative); Nitrite Urine Negative (Negative); PH 5.5 (5.0-9.0); Urine Blood Negative (Negative); Urine Ketones Negative (Negative); Urine Protein Negative (Neg-Trace)
[2024-10-18 14:38] LABS: Basophils Percent Auto 0.6 % (0-2); Eosinophils Absolute Auto 0.1 X10*3/uL (0.0-0.4); Hematocrit 42.9 % (37.0-47.0); Hemoglobin 14.7 g/dl (12.0-16.0); Lymphocytes Absolute Auto 2.3 X10*3/uL (1.2-4.9); Lymphocytes Percent Auto 45.3 % (20-40); Mean Corpuscular HGB Conc 34.3 g/dl (31.0-35.0); Mean Corpuscular Hemoglobin 30.1 pg (27.0-33.0); Mean Corpuscular Volume 87.9 fL (80.0-98.0); Mean Platelet Volume 11.2 fL (9.4-12.3); Monocytes Absolute Auto 0.3 X10*3/uL (0.1-1.2); Monocytes Percent Auto 6.1 % (2-11); Neutrophils Absolute Auto 2.4 x10*3/uL (2.0-8.3); Platelet Count 245 X10*3/uL (160-400); Red Blood Count 4.88 X10*6/uL (4.20-5.50); Red Cell Distribution Width 12.1 % (11.0-16.0); White Blood Count 5.1 X10*3/uL (4.8-10.8)
[2024-10-18 14:43] LABS: D Dimer High Sensitivity < 150 NG/ML
[2024-10-18 15:17] LABS: Erythrocyte Sedimentation Rate 3 MM/HR (0-20)
[2024-10-18 15:25] LABS: Alanine Aminotransferase 23 U/L (0-31); Albumin Level 4.2 g/dL (3.5-5.0); Alkaline Phosphatase 108 U/L (39-117); Anion Gap 11 (12-20); Aspartate Amino Transferase 27 U/L (5-31); Bilirubin Total 1.3 mg/dL (0.0-1.0); Blood Urea Nitrogen 12 mg/dL (9-16); Calcium 9.5 mg/dL (8.4-10.2); Carbon Dioxide 28 mmol/L (22-29); Chloride 106 mmol/L (96-108); Estimated Glomerular Filt Rate > 60; Glucose Random 128 mg/dL (60-115); Iron 57 mcg/dL (30-160); Magnesium 1.8 mg/dL (1.6-2.6); Percent Iron Saturation 23 % (15-50); Potassium 4.2 mmol/L (3.3-5.1); Sodium 141 mmol/L (135-145); Total Iron Binding Capacity 248 mcg/dL (228-428); Total Protein 7.2 g/dL (6.5-8.0); Unsaturated Iron Binding 191 ug/dL
[2024-10-18 15:30] LABS: Ferritin 89 ng/mL (10-250); TSH reflex Free T4 0.72 uIU/mL (0.32-4.0)
[2024-10-18 15:40] LABS: Folate 6.1 ng/mL (> or = 4.0); Vitamin B12 346 pg/mL (200-900)
== END 2024-10-18 10:57 | disposition home or self-care (01) ==
LOC: HO.WFDLDS 10:56
PROVIDERS: Visit Provider Physician Assistant
DX: R53.83 Other fatigue (principal); R55 Syncope and collapse; R22.2 Localized swelling, mass and lump, trunk; R19.7 Diarrhea, unspecified; Z13.220 Encounter for screening for lipoid disorders
CPT/HCPCS: 36415; 80053; 81003; 82607; 82728; 82746; 83540; 83735; 84443; 85025; 85379; 85652

== ENCOUNTER 2024-11-07 10:15 | Outpatient (AMB) | payer OTHER, SELFPAY ==
--- NOTE | 2024-11-07 10:26 | MHC.PC.OV ---
Vital Signs 11/07/24 10:29 Height 5 ft 4 in Weight 150 lb 4 oz BMI 25.8 BP 110/76 Blood Pressure Location Rt brachial Position Sitting Respiration 14 Pulse 82 Pulse Source Pulse Oximeter Pulse Oximetry (%) 96 Oxygen Delivery Method Room Air Intake Visit Reasons: dm Intake Note: Diabetets follow up Clay Miller Required: No Allergies No Known Allergies Allergy (Verified 11/07/24 10:28) Medication List - Last Reconciled 11/07/24 by Scarlett Anguiano PA-C acetaminophen (Tylenol Extra Strength) 1,000 mg PO Q6H PRN albuterol sulfate 90 mcg/actuation 2 puffs inhalation Q6H PRN amitriptyline 10 mg PO BEDTIME atorvastatin 10 mg PO DAILY blood sugar diagnostic (FreeStyle Lite Strips) Use daily As directed to check blood glucose blood-glucose meter (FreeStyle Lite Meter kit) Use daily As directed to check blood sugars cholestyramine (with sugar) 4 gram (Questran) 4 grams PO BID lancets (FreeStyle Lancets) use daily as directed to check blood glucose metformin 500 mg PO BID 90 days omeprazole 40 mg (2 x 20 mg) PO BID 90 days Tobacco use date assessed: 11/07/24 Dental Screening Dental Screen Date: 10/17/24 HPI dm HPI Details Patient is a 58-year-old female with a significant past medical history of type 2 diabetes, hyperlipidemia and GERD presenting today for a Follow up. Musculoskeletal: Reports a lump on her right low back that is been there for about 6 months. It has fluctuated in size. She states initially she did not think much of it as she had imaging of her kidneys and her abdomen and pelvis which were all reassuring. She states that she then had her cholecystectomy in the lump actually resolved. It did return back about of month or so ago and she states that it is painful and always present. She has 2 stretch and do certain yoga positions do help alleviate some of the pain. She states that the lump seems to roll around. She is scheduled for an ultrasound on 11/20. She denies any overlying erythema or increased warmth. No fevers or chills with this. She did have a back MRI in the past but can not recall where this was done so we do not have the results of this. States that there was no mention of a lump at that point. She did have a CT of the abdomen and pelvis on 08/20 which did not show any masses. CV: Blood pressure today in the office is 110/76. Cholesterol is managed with atorvastatin 10 mg. This is relatively new and she has not yet had her lipids are LFTs rechecked. Endo: Last A1c was 8.4. She is currently on metformin 1000 mg in the morning and 500 in the evening and states that her blood sugars around 130. GI: Managing GERD with the omeprazole 40 mg. Recently started on Questran to see if that would help with her diarrhea and she states that it has. She has been referred to GI. Neuro: On amitriptyline 10 mg per management of headaches. Has followed with Neurology [place]ammogram: [place] [facility] [place] Bone density: UTD, at [facility] [place] 3 - wnl Pap: overdue- states will book Colonoscopy: due in 2025, had this with Dr. Diamond [facility] Medical History (Updated 10/17/24 @ 15:23 by Scarlett Anguiano PA-C) Gallstones Adhesion of tendon of hand Type 2 diabetes mellitus Multiple rib fractures HTN (hypertension) Hyperglycemia Dyslipidemia Conjunctivitis Cholelithiasis Acute sinusitis Surgical History Hx of cholecystectomy Hx of breast reduction, elective Family History Mother HTN (hypertension) Glioblastoma Father HTN (hypertension) Diabetes Sister Breast cancer Brother Heart attack Other FH: mental illness Social History (Updated 11/07/24 @ 10:36 by Mary Gramajo CMA) Housing: House ([facility]) Alcohol intake: current Patient Tobacco Use Status: Never used Tobacco e-Cigarette/Vaping Use: Never Used Second Hand Smoke Exposure: No service: No Current occupational status: employed Current occupation: [employer] Current occupational exposures/hazards: Yes Cognitive needs: No Hearing needs: Yes (deaf in right ear) Vision needs: Yes (glasses) Questionnaire Thrive Questionnaire Date Thrive assessed: 09/08/24 I am a: Patient What is your living situation today?: I have a steady place to live Within the past 12 months, did the food you bought not last and you didn't have the money to get more?: Never true Within the past 12 months, did you worry whether your food would run out before you got money to buy more?: Never true Do you have trouble paying for medicines?: No Do you have trouble getting transportation to medical appointments?: No Do you have trouble paying your heating and electricity bill?: No Do you have trouble taking care of your child, family member or friend?: No Do you have trouble with day-to-day activities such as bathing, preparing meals, shopping, managing finances, etc.?: No Are you currently unemployed and looking for a job?: No Are you interested in more education?: No Please select the resources that you would like help with: None Currently or been in a relationship where the following occur: No concerns reported THRIVE Score: 0 AARON-7 AMB Questionnaire AARON-7 Date AARON - 7 assessed: 09/12/24 Source: Developed by Drs. Noel Solorio, Andreina Lamas, Marlon Suarez and colleagues, with an educational smiley from [employer]. Physical exam (Primary Care) Vital Signs: Last Vital Signs Pulse 82 11/07/24 10:29 Resp 14 11/07/24 10:29 BP 110/76 11/07/24 10:29 Pulse Ox 96 11/07/24 10:29 Oxygen Delivery Method Room Air 11/07/24 10:29 BMI result Body Mass Index 25.8 Tobacco/Smoking Status: Tobacco use Status Tobacco use date assessed 11/07/24 11/07/24 10:31 Patient Tobacco Use Status Never used Tobacco 11/07/24 10:36 e-Cigarette/Vaping Use Never Used 11/07/24 10:36 Thrive Assessment: Date of Thrive Assessment Date Thrive assessed 09/08/24 11/07/24 10:31 Currently or been in a relationship where the following occur: No concerns reported Const Orientation/consciousness: patient oriented x3 HENMT Ears: hearing grossly normal bilaterally Neck Thyroid: Thyroid normal Lymphatic: no lymphadenopathy noted Resp Auscultation: clear to auscultation bilaterally Cardio Rate: regular rate Rhythm: regular rhythm Heart sounds: S1 normal heart sound present and S2 normal heart sound present GI Inspection: Yes normal to inspection Palpation (GI): Soft to palpation and Other GI palpation findings present (nontender, no cva tenderness) Auscultation: normoactive bowel sounds Rectal Exam - Female: deferred Back/Spine/Pelvis Other: There is a 3 cm x 2 cm slightly mobile subcutaneous lump noted in the right lower back. It is tender to palpation. Skin General skin exam: no rashes or lesions noted Neuro General: patient oriented x3, gait normal and no focal motor deficits Coding Level of Care Code Est Pt Level 4 (83404) Complex EM visit Add On G2211 Diagnoses Controlled type 2 diabetes mellitus without complication, without long-term current use of insulin E11.9 Diabetes mellitus alf insulin use: without ocean transportation intermediary use Diabetes mellitus complication status: without complication Lump of skin of back R22.2 Diarrhea R19.7 Assessment & Plan Assessment & Plan (1) Controlled type 2 diabetes mellitus: Code(s): E11.9 - Type 2 diabetes mellitus without complications Category: Medical Qualifiers: Diabetes mellitus alf insulin use: without alf use Diabetes mellitus complication status: without complication Qualified Code(s): E11.9 - Type 2 diabetes mellitus without complications Plan: Increase metformin to 1000 mg twice a day Return in a few months for labs and follow up (2) Lump of skin of back: Code(s): R22.2 - Localized swelling, mass and lump, trunk Category: Medical Plan: Ultrasound is ordered and pending. She was referred to General surgery but has not heard. Phone number provided today (3) Diarrhea: Code(s): R19.7 - Diarrhea, unspecified Category: Medical Plan: Improved with the Questran. Advised to continue with this. Medications: New metformin 1,000 mg PO BID 180 tabs 2RF Discontinued metformin Discontinued Reason: Doctor's Order 500 mg PO BID 90 days 180 tabs 1RF
[2024-11-07 10:29] VITALS: BP 110/76; PULSE 82; RESP 14; O2SAT 96; BMI 25.8
== END 2024-11-07 11:16 | disposition home or self-care (01) ==
LOC: HO.HMCFM 10:16
PROVIDERS: PCP Physician Assistant; Visit Provider Physician Assistant
DX: E11.9 Type 2 diabetes mellitus without complications (principal); R22.2 Localized swelling, mass and lump, trunk; R19.7 Diarrhea, unspecified

== ENCOUNTER → 2024-11-20 15:02 | Outpatient (REF) | payer OTHER, SELFPAY ==
--- NOTE | ~2024-11-20 | US_ITS ---
CLINICAL HISTORY: R22.2 - Localized swelling, mass and lump, trunk Limited soft tissue ultrasound lower back. Comparison: None Findings: There is no evidence of discrete soft tissue mass or fluid collection. Impression: No focal mass or fluid collection noted. This document has been electronically signed by: Mahesh Burleson MD on 11/22/2024 06:05:54
== END ==
LOC: HO.CARD 15:02
PROVIDERS: PCP Physician Assistant; Visit Provider Physician Assistant
DX: R22.2 Localized swelling, mass and lump, trunk (principal); R07.1 Chest pain on breathing; R55 Syncope and collapse
CPT/HCPCS: 76705; 93225

== ENCOUNTER → 2024-11-20 15:15 | Outpatient (BNV) | payer OTHER, SELFPAY | PROVIDERS: PCP Physician Assistant; Visit Provider Radiology Diagnostic Radiology | DX: R22.2 Localized swelling, mass and lump, trunk (principal) | CPT/HCPCS: 76705 ==

== ENCOUNTER 2024-11-28 08:40 | Outpatient (AMB) | payer OTHER, SELFPAY ==
--- NOTE | 2024-11-28 08:45 | MHC.OFFVIS ---
Vital Signs 11/28/24 08:52 Height 5 ft 4 in Weight 149 lb BMI 25.6 BP 139/77 Blood Pressure Location Rt brachial Position Sitting Pulse 71 Intake Visit Reasons: lump back Intake Note: Patient referred by Scarlett Anguiano PA-C for lump on back. Present for 3-4m Patient c/o: tender to touch. Mass is mobile. No hx of trauma to area. Back US: 11-20-2024 Computer Networking Instructor Adjunct Required: No Accompanied by: Self / Same As Patient Allergies No Known Allergies Allergy (Verified 11/28/24 08:51) HPI Comments Details: Patient presents with a right lower back soft tissue mass/lipoma. She had this indeterminate time. In his increasing in size, become more symptomatic. She would like to have removed. She has no such lesions elsewhere. 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 Chart was reviewed and patient evaluated [facility] Medical History Gallstones Adhesion of tendon of hand Type 2 diabetes mellitus Multiple rib fractures HTN (hypertension) Hyperglycemia Dyslipidemia Conjunctivitis Cholelithiasis Acute sinusitis Surgical History Hx of cholecystectomy Hx of breast reduction, elective Family History Mother HTN (hypertension) Glioblastoma Father HTN (hypertension) Diabetes Sister Breast cancer Brother Heart attack Other FH: mental illness Social History Housing: House ([facility]) Alcohol intake: current Patient Tobacco Use Status: Never used Tobacco e-Cigarette/Vaping Use: Never Used Second Hand Smoke Exposure: No service: No Current occupational status: employed Current occupation: RESEARCH INSTRUCTOR [employer] Current occupational exposures/hazards: Yes Cognitive needs: No Hearing needs: Yes (deaf in right ear) Vision needs: Yes (glasses) Physical Exam Vital Signs: Last Vital Signs Pulse 71 11/28/24 08:52 BP 139/77 11/28/24 08:52 BMI result Body Mass Index 25.6 Chest Other: Chest sounds bilaterally, HS 1 in 2 GI Other: Abdomen is soft, benign Back/Spine/Pelvis Other: Patient has a deep right lower back soft tissue mass measuring roughly 6 x 5 cm consistent with a large lipoma. Assessment & Plan Assessment & Plan (1) Lipoma of back: Code(s): D17.1 - Benign lipomatous neoplasm of skin and subcutaneous tissue of trunk Category: Surgical Plan Because of the size and depth of this lesion, I recommend excision be performed in an ambulatory setting. Risks, benefits, alternatives of procedure reviewed with the patient included but not limited to bleeding, infection, recurrence, numbness, pain, seroma, and scarring; the patient wished to proceed. All questions answered. Arrangements were made for this on a day which is convenient for her. Coding Level of Care Code New Pt Level 5 (41528) Diagnoses Lipoma of back D17.1
[2024-11-28 08:52] VITALS: BP 139/77; PULSE 71; BMI 25.6
== END 2024-11-28 09:01 | disposition home or self-care (01) ==
LOC: HO.HGS 08:40
PROVIDERS: PCP Physician Assistant; Visit Provider Surgery
DX: D17.1 Benign lipomatous neoplasm of skin and subcutaneous tissue of trunk (principal)
CPT/HCPCS: 99204

== ENCOUNTER → 2024-11-28 08:40 | Outpatient (BNVA) | payer OTHER, SELFPAY | PROVIDERS: PCP Physician Assistant; Visit Provider Surgery ==

== ENCOUNTER 2025-01-16 14:10 | Outpatient (AMB) | payer OTHER, SELFPAY ==
--- NOTE | 2025-01-16 14:14 | A.OFFVIS_ITS ---
Vital Signs 01/16/25 14:26 Height 5 ft 4 in Weight 146 lb 6 oz BMI 25.1 BP 129/85 Blood Pressure Location Lt brachial Position Sitting Pulse 101 H Intake Visit Reasons: Dr. Randhawa~ IFEOMA Rt lower back mass Intake Note: Patient last office visit w/ Dr. Randhawa 11-28-2024. Patient scheduled today's visit to discuss lipoma on Rt lower back excision. Patient c/o: has two back lipomas that would like to have removed Planer Setter Required: No Accompanied by: Self / Same As Patient Allergies No Known Allergies Allergy (Verified 01/16/25 14:18) Medication List - Last Reconciled 01/16/25 by Roe Heck MD acetaminophen (Tylenol Extra Strength) 1,000 mg PO Q6H PRN albuterol sulfate 90 mcg/actuation 2 puffs inhalation Q6H PRN amitriptyline 10 mg PO BEDTIME atorvastatin 10 mg PO DAILY blood sugar diagnostic (FreeStyle Lite Strips) Use daily As directed to check blood glucose blood-glucose meter (FreeStyle Lite Meter kit) Use daily As directed to check blood sugars cholestyramine (with sugar) 4 gram (Questran) 4 grams PO BID lancets (FreeStyle Lancets) use daily as directed to check blood glucose metformin 1,000 mg PO BID omeprazole 40 mg (2 x 20 mg) PO BID [address] Randhawa~ IFEOMA Rt lower back mass: Details: She says that she has been seen by Dr. Randhawa because of a ?lipoma? on the right lumbar area. She says that she was supposed to be scheduled by him for excision of the lipoma under anesthesia She was scheduled to see me because Dr. Randhawa has been unavailable. She describes pain in the right lumbar area and she says that she thinks there is a ?lump? in the area. [facility] Medical History Lumbar pain Gallstones Adhesion of tendon of hand Type 2 diabetes mellitus Multiple rib fractures HTN (hypertension) Hyperglycemia Dyslipidemia Conjunctivitis Cholelithiasis Acute sinusitis Surgical History Hx of cholecystectomy Hx of breast reduction, elective Family History Mother HTN (hypertension) Glioblastoma Father HTN (hypertension) Diabetes Sister Breast cancer Brother Heart attack Other FH: mental illness Social History Housing: House ([facility]) Alcohol intake: current Patient Tobacco Use Status: Never used Tobacco e-Cigarette/Vaping Use: Never Used Second Hand Smoke Exposure: No service: No Current occupational status: employed Current occupation: [employer] Current occupational exposures/hazards: Yes Cognitive needs: No Hearing needs: Yes (deaf in right ear) Vision needs: Yes (glasses) Review of Systems Const Denies chills and Denies fever(s) Card Denies chest pain, Denies dyspnea and Denies dyspnea on exertion Resp Denies cough, Denies dyspnea and Denies dyspnea on exertion GI Denies hematochezia and Denies change in bowel habits Denies hematuria Musc Reports back pain and Denies limited range of motion Neuro Denies focal weakness and Denies convulsions Psych Denies depression and Denies mood swings Physical Exam Vital Signs: Last Vital Signs Pulse 101 H 01/16/25 14:26 BP 129/85 01/16/25 14:26 BMI result Body Mass Index 25.1 Const General: comfortable and no acute distress Resp Effort & Inspection: normal respiratory effort Cardio Rate: regular rate Back/Spine/Pelvis Other: Vague tenderness in the right lumbar area, no obvious palpable mass Assessment & Plan Assessment & Plan (1) Lumbar pain: Code(s): M54.50 - Low back pain, unspecified Category: Medical Plan: She has this vague area of tenderness on the right lumbar region. I have reviewed her ultrasound from November,. There is no evidence of discrete soft tissue mass or fluid in this area I am therefore going to order for an MRI of the back. I told her that at this time, I do not feel any lump and the ultrasound does not show any lipoma in the area She understands and we will see him again after the MRI. Orders: Orders MR lumbar spine wo/w con Today M54.50 - Low back pain, unspecified Coding Level of Care Code Est Pt Level 3 (21121) Diagnoses Lumbar pain M54.50
[2025-01-16 14:26] VITALS: BP 129/85; PULSE 101; BMI 25.1
== END 2025-01-16 14:51 | disposition home or self-care (01) ==
LOC: HO.HGS 14:11
PROVIDERS: PCP Physician Assistant; Visit Provider Surgery
DX: M54.50 Low back pain, unspecified (principal)
CPT/HCPCS: 99213

== ENCOUNTER 2025-02-13 10:13 | Outpatient (AMB) | payer OTHER, SELFPAY ==
--- NOTE | 2025-02-13 10:18 | A.OFFPC_ITS ---
Vital Signs 02/13/25 10:22 Height 5 ft 4 in Weight 147 lb BMI 25.2 BP 116/82 Blood Pressure Location Lt brachial Position Sitting Pulse 89 Pulse Source Pulse Oximeter Temp 98 F Temp Source Oral Pulse Oximetry (%) 98 Oxygen Delivery Method Room Air Intake Visit Reasons: labs Intake Note: Follow up. Lab results. Allergies No Known Allergies Allergy (Verified 01/16/25 14:18) Medication List - Last Reconciled 02/13/25 by Scarlett Anguiano PA-C acetaminophen (Tylenol Extra Strength) 1,000 mg PO Q6H PRN albuterol sulfate 90 mcg/actuation 2 puffs inhalation Q6H PRN amitriptyline 10 mg PO BEDTIME atorvastatin 10 mg PO DAILY blood sugar diagnostic (FreeStyle Lite Strips) Use daily As directed to check blood glucose blood-glucose meter (FreeStyle Lite Meter kit) Use daily As directed to check blood sugars empagliflozin (Jardiance) 10 mg PO QAM lancets (FreeStyle Lancets) use daily as directed to check blood glucose metformin 500 mg PO BID omeprazole 40 mg (2 x 20 mg) PO BID 90 days Tobacco use date assessed: 02/13/25 Dental Screening Dental Screen Date: 10/17/24 HPI labs HPI Details Patient is a 59-year-old female with a significant past medical history of type 2 diabetes, hyperlipidemia and GERD presenting today for a Follow up. Musculoskeletal: Following with General surgery for a lump on her low back. It has fluctuated in size. She states initially she did not think much of it as she had imaging of her kidneys and her abdomen and pelvis which were all reassuring.She has 2 stretch and do certain yoga positions do help alleviate some of the pain. She states that the lump seems to roll around. She denies any overlying erythema or increased warmth. No fevers or chills with this. She did have a back MRI in the past but can not recall where this was done so we do not have the results of this. States that there was no mention of a lump at that point. She did have a CT of the abdomen and pelvis on 08/20 which did not show any masses. She has an MRI reordered CV: Blood pressure today in the office is 116/82. Cholesterol is managed with atorvastatin 10 mg. Tolerating this well. Endo: Last A1c was 6.3. She is currently on metformin 1000 mg BID. She is having a lot GI upset with this and appetite suppression. glipizde in the past caused hypoglycemia. GI: Managing GERD with the omeprazole 40 mg. Recently started on Questran to see if that would help with her diarrhea and she states that it has but caused n/v so d/c'd it. She has been referred to GI and seeing them next week. Neuro: On amitriptyline 10 mg per management of headaches. Has followed with Neurology Psych: has had a lot of stressors and has coping mechanisms. She has strong relationship with sabianism, she is a Worship, and finds this helpful. Mammogram: at [facility] 2024 Bone density: UTD, at [facility] 2022 - wnl Pap: overdue- states will book Colonoscopy: due in 2025, had this with Dr. Lobo CHEW Medical History Lumbar pain Gallstones Adhesion of tendon of hand Type 2 diabetes mellitus Multiple rib fractures HTN (hypertension) Hyperglycemia Dyslipidemia Conjunctivitis Cholelithiasis Acute sinusitis Surgical History Hx of cholecystectomy Hx of breast reduction, elective Family History Mother HTN (hypertension) Glioblastoma Father HTN (hypertension) Diabetes Sister Breast cancer Brother Heart attack Other FH: mental illness Social History (Updated 02/13/25 @ 10:28 by Mary Gramajo CMA) Housing: House ([facility]) Alcohol intake: current Patient Tobacco Use Status: Never used Tobacco e-Cigarette/Vaping Use: Never Used Second Hand Smoke Exposure: No service: No Current occupational status: employed Current occupation: [employer] Current occupational exposures/hazards: Yes Cognitive needs: No Hearing needs: Yes (deaf in right ear) Vision needs: Yes (glasses) Questionnaire Thrive Questionnaire Date Thrive assessed: 09/08/24 I am a: Patient What is your living situation today?: I have a steady place to live Within the past 12 months, did the food you bought not last and you didn't have the money to get more?: Never true Within the past 12 months, did you worry whether your food would run out before you got money to buy more?: Never true Do you have trouble paying for medicines?: No Do you have trouble getting transportation to medical appointments?: No Do you have trouble paying your heating and electricity bill?: No Do you have trouble taking care of your child, family member or friend?: No Do you have trouble with day-to-day activities such as bathing, preparing meals, shopping, managing finances, etc.?: No Are you currently unemployed and looking for a job?: No Are you interested in more education?: No Please select the resources that you would like help with: None Currently or been in a relationship where the following occur: No concerns reported THRIVE Score: 0 AUDIT C Alcohol Use Questionnaire (AUDIT-C) 1. How often do you have a drink containing alcohol?: 2-3 times a week 2. How many drinks containing alcohol do you have on a typical day when you are drinking?: 1 or 2 3. How often do you have six or more drinks on one occasion?: Never Total Score: 3 AARON-7 AMB Questionnaire AARON-7 Date AARON - 7 assessed: 09/12/24 Source: Developed by Drs. Noel Solorio, Andreina Lamas, Marlon Suarez and colleagues, with an educational smiley from [email or web address]. Physical exam (Primary Care) Vital Signs: Last Vital Signs Temp 98 F 02/13/25 10:22 Pulse 89 02/13/25 10:22 BP 116/82 02/13/25 10:22 Pulse Ox 98 02/13/25 10:22 Oxygen Delivery Method Room Air 02/13/25 10:22 BMI result Body Mass Index 25.2 Tobacco/Smoking Status: Tobacco use Status Tobacco use date assessed 02/13/25 02/13/25 10:28 Patient Tobacco Use Status Never used Tobacco 02/13/25 10:28 e-Cigarette/Vaping Use Never Used 02/13/25 10:28 Thrive Assessment: Date of Thrive Assessment Date Thrive assessed 09/08/24 02/13/25 10:18 Currently or been in a relationship where the following occur: No concerns reported Const Orientation/consciousness: patient oriented x3 HENMT Ears: hearing grossly normal bilaterally Neck Thyroid: Thyroid normal Lymphatic: no lymphadenopathy noted Resp Auscultation: clear to auscultation bilaterally Cardio Rate: regular rate Rhythm: regular rhythm Heart sounds: S1 normal heart sound present and S2 normal heart sound present GI Inspection: Yes normal to inspection Palpation (GI): Soft to palpation and Other GI palpation findings present (nontender, no cva tenderness) Auscultation: normoactive bowel sounds Rectal Exam - Female: deferred Skin General skin exam: no rashes or lesions noted Neuro General: patient oriented x3, gait normal and no focal motor deficits Results AMB Hemoglobin A1c AMB Hemoglobin A1c 6.3 % Last Edit by Mary Gramajo CMA on 02/13/25 10:55 Results Reviewed Results Reviewed: Laboratory Last Values Hgb A1c (Clinic) 6.3 % (4.0-6.0) H 02/13/25 10:50 Coding Level of Care Code Est Pt Level 4 (83031) Complex EM visit Add On G2211 Diagnoses Controlled type 2 diabetes mellitus without complication, without long-term current use of insulin E11.9 Diabetes mellitus complication status: without complication Diabetes mellitus skilled nursing insulin use: without equipment operator intermodal yard use Diarrhea R19.7 Lump of skin of back R22.2 Assessment & Plan Assessment & Plan (1) Controlled type 2 diabetes mellitus: Code(s): E11.9 - Type 2 diabetes mellitus without complications Category: Medical Qualifiers: Diabetes mellitus complication status: without complication Diabetes mellitus skilled nursing insulin use: without equipment operator intermodal yard use Qualified Code(s): E11.9 - Type 2 diabetes mellitus without complications Plan: will reduce metformin to 500 mg bid start jardiance 10 mg daily f/u labs in 2-3 weeks return in 3 months for recheck (2) Diarrhea: Code(s): R19.7 - Diarrhea, unspecified Category: Medical Plan: gi booked 02/19. chastity made her vomit (3) Lump of skin of back: Code(s): R22.2 - Localized swelling, mass and lump, trunk Category: Medical Plan: mri ordered by gen surgery she is wanting surgery for this Orders: Orders Basic Metabolic Panel Today E11.9 - Type 2 diabetes mellitus without complications, R19.7 - Diarrhea, unspecified, R22.2 - Localized swelling, mass and lump, trunk AMB Hemoglobin A1c Today E11.9 - Type 2 diabetes mellitus without complications TSH reflex Free T4 Today E11.9 - Type 2 diabetes mellitus without complications, R19.7 - Diarrhea, unspecified, R22.2 - Localized swelling, mass and lump, trunk Complete Blood Count Auto Diff Today E11.9 - Type 2 diabetes mellitus without complications, R19.7 - Diarrhea, unspecified, R22.2 - Localized swelling, mass and lump, trunk Liver Panel Today E11.9 - Type 2 diabetes mellitus without complications, R19.7 - Diarrhea, unspecified, R22.2 - Localized swelling, mass and lump, trunk Referrals NUCLEAR SPECTROSCOPIST Referral [id number] - Encounter for gynecological examination (general) (routine) without abnormal findings Medications: New empagliflozin (Jardiance) 10 mg PO QAM 90 tabs 0RF Changed From omeprazole 40 mg PO DAILY To omeprazole 40 mg (2 x 20 mg) PO BID 360 caps 0RF 90 days Discontinued cholestyramine (with sugar) 4 gram (Questran) administer w/meal; avoid other meds within 1hr before or 4-6hr after dose Discontinued Reason: Doctor's Order 4 grams PO BID 368.76 grams 1RF metformin Discontinued Reason: Doctor's Order 1,000 mg PO BID 180 tabs 2RF
[2025-02-13 10:22] VITALS: BP 116/82; PULSE 89; TEMP 36.6; O2SAT 98; BMI 25.2
== END 2025-02-13 11:01 | disposition home or self-care (01) ==
LOC: HO.HMCFM 10:14
PROVIDERS: PCP Physician Assistant; Visit Provider Physician Assistant
DX: E11.9 Type 2 diabetes mellitus without complications (principal); R19.7 Diarrhea, unspecified; R22.2 Localized swelling, mass and lump, trunk

== ENCOUNTER → 2025-02-13 10:13 | Outpatient (BNVA) | payer OTHER, SELFPAY | PROVIDERS: PCP Physician Assistant; Visit Provider Physician Assistant | DX: E11.9 Type 2 diabetes mellitus without complications (principal); E78.5 Hyperlipidemia, unspecified; K21.9 Gastro-esophageal reflux disease without esophagitis; R19.7 Diarrhea, unspecified; R22.2 Localized swelling, mass and lump, trunk; Z79.84 Long term (current) use of oral hypoglycemic drugs; Z79.899 Other long term (current) drug therapy | CPT/HCPCS: 83036 ==

== ENCOUNTER 2025-02-19 11:41 | Outpatient (AMB) | payer OTHER, SELFPAY ==
--- NOTE | 2025-02-19 11:47 | MHC.OFFVIS ---
Vital Signs 02/19/25 11:51 Height 5 ft 4 in Weight 146 lb BMI 25.1 BP 140/90 H Blood Pressure Location Rt brachial Position Sitting Pulse 82 Pulse Source Pulse Oximeter Pulse Oximetry (%) 98 Oxygen Delivery Method Room Air Intake Visit Reasons: Diarrhea Intake Note: New pt for diarrhea / fecal abn mgmt. CC; C.O. abn weight loss, lack of appetite, nausea w/o vomiting, diarrhea, s/p cholecystectomy syndrome. Pt reports having colonoscopy via [facility] over 10 years ago. Cook Frozen Dessert Required: No Accompanied by: Self / Same As Patient Allergies glipizide Allergy (Unknown, Verified 02/15/25 09:42) hypoglycemia metformin Allergy (Unknown, Verified 02/15/25 09:42) GI upset HPI HPI Diarrhea: Details: 59-year-old female with past medical history of diabetes, status post laparoscopic cholecystectomy, dyslipidemia, postprandial diarrhea is here today for initial consultation. Patient was sent to us by her PCP patient reports that since her cholecystectomy in July of 2024 patient has been dealing with postprandial diarrhea. Patient reports that no matter what she eats feels like everything goes through her. Patient reports that she tried cholestyramine, however unable to tolerate the taste and stopped. Patient also reports acid reflux. PCP started her on omeprazole 40 mg twice a day. Patient decrease the dose to once a day 40 mg done done to 20 mg daily. Reports severe reflux with epigastric pain postprandially. Patient just recently within the last year was diagnosed with diabetes. Started with metformin 500 mg that was increase to 1000 mg, however dose was decreased back to 500 as she was having increased loose stools. Patient denies melena, hematochezia. Reports weight loss, however she states that she is not eating as much as she is afraid that she is going to have loose stools. Patient denies dyspepsia, dysphagia or odynophagia PFSH Medical History Lumbar pain Gallstones Adhesion of tendon of hand Type 2 diabetes mellitus Multiple rib fractures HTN (hypertension) Hyperglycemia Dyslipidemia Conjunctivitis Cholelithiasis Acute sinusitis Surgical History Hx of cholecystectomy Hx of breast reduction, elective Family History Mother HTN (hypertension) Glioblastoma Father HTN (hypertension) Diabetes Sister Breast cancer Brother Heart attack Other FH: mental illness Social History Housing: House ([facility]) Alcohol intake: current Patient Tobacco Use Status: Never used Tobacco e-Cigarette/Vaping Use: Never Used Second Hand Smoke Exposure: No service: No Current occupational status: employed Current occupation: [employer] Current occupational exposures/hazards: Yes Cognitive needs: No Hearing needs: Yes (deaf in right ear) Vision needs: Yes (glasses) Review of Systems Const Denies weight gain and Denies weight loss ENT Reports no additional complaints, Denies dysphagia and Denies odynophagia Card Reports no additional complaints Resp Reports no additional complaints GI Reports abdominal pain, Denies belching, Denies melena, Denies bloating, Denies change in bowel habits, Denies dysphagia, Denies excessive flatus, Reports dyspepsia, Reports heartburn, Reports diarrhea, Denies loose stools, Denies nausea, Denies odynophagia and Denies vomiting Reports no additional complaints Musc Reports no additional complaints Neuro Reports no additional complaints Psych Reports no additional complaints Endo Reports no additional complaints Physical Exam Const General: healthy appearing, no acute distress and well developed Nutritional Appearance: well nourished Orientation/consciousness: patient oriented x3 Resp Effort & Inspection: normal respiratory effort, able to speak in complete sentences, no tracheal deviation and symmetric chest movement Auscultation: clear to auscultation bilaterally Cardio Rate: regular rate GI Inspection: Yes normal to inspection and No distended Palpation (GI): Soft to palpation, not firm, nontender and No hepatosplenomegaly present Auscultation: normal bowel sounds General: Yes no CVA tenderness Back/Spine/Pelvis Back: no CVA tenderness Skin General skin exam: elasticity normal, turgor normal and dry skin Neuro General: patient oriented x3 Psych Appearance: grossly normal Mental Status: mental status grossly normal Assessment & Plan Assessment & Plan (1) Diarrhea: Code(s): R19.7 - Diarrhea, unspecified Category: Medical Qualifiers: Diarrhea type: functional diarrhea Qualified Code(s): K59.1 - Functional diarrhea (2) S/P laparoscopic cholecystectomy: Code(s): Z90.49 - Acquired absence of other specified parts of digestive tract Category: Surgical (3) Postprandial epigastric pain: Code(s): R10.13 - Epigastric pain (4) GERD (gastroesophageal reflux disease): Code(s): K21.9 - Gastro-esophageal reflux disease without esophagitis Qualifiers: Esophagitis presence: esophagitis presence not specified Qualified Code(s): K21.9 - Gastro-esophageal reflux disease without esophagitis Plan Patient reports postprandial diarrhea most likely like that to post cholecystectomy syndrome. Patient unable to take cholestyramine due to this liking the taste. Patient will try [id number] fiber supplement to help bulk her stools. Will rule out IBD. Patient reports that C diff and ova and parasites were rule out by [facility] after she had her surgery. Will check fecal fat qualitative. Reports acid reflux not well controlled. Will stop omeprazole and will add Nexium and sucralfate at bedtime. Patient will follow-up in 3 months so we can discuss going for upper endoscopy and colonoscopy. Patient is agreeable to this plan and verbalizes understanding of instructions. She was given the opportunity to ask questions and all questions answered. Thank you for allowing me to participate in her care Orders: Orders C Reactive Protein Today K58.9 - Irritable bowel syndrome, unspecified Calprotectin, Fecal Today R15.9 - Full incontinence of feces Fecal Fat Qualitative Today R19.7 - Diarrhea, unspecified Medications: New sucralfate 1 g PO BEDTIME 30 tabs 4RF R19.7 - Diarrhea, unspecified esomeprazole magnesium (Nexium) 40 mg PO DAILY 30 caps 3RF K21.9 - Gastro-esophageal reflux disease without esophagitis Discontinued omeprazole Discontinued Reason: Doctor's Order 40 mg (2 x 20 mg) PO BID 90 days 360 caps 0RF Coding Level of Care Code New Pt Level 4 (11858) Diagnoses Functional diarrhea K59.1 Diarrhea type: functional diarrhea S/P laparoscopic cholecystectomy Z90.49 Postprandial epigastric pain R10.13 Gastroesophageal reflux disease, unspecified whether esophagitis present K21.9 Esophagitis presence: esophagitis presence not specified Time Spent (min) 50 Comment 35 minutes spent with patient and additional 15 minutes spent reviewing her records
[2025-02-19 11:51] VITALS: BP 140/90; PULSE 82; O2SAT 98; BMI 25.1
== END 2025-02-19 12:31 | disposition home or self-care (01) ==
LOC: HO.HGI 11:42
PROVIDERS: PCP Physician Assistant; Visit Provider Nurse Practitioner Family
DX: K59.1 Functional diarrhea (principal); Z90.49 Acquired absence of other specified parts of digestive tract; R10.13 Epigastric pain; K21.9 Gastro-esophageal reflux disease without esophagitis
CPT/HCPCS: 99204

== ENCOUNTER 2025-02-19 12:37 | Outpatient (REF) | payer OTHER, SELFPAY ==
--- NOTE | ~2025-02-19 | MR_ITS ---
EXAMINATION: MR LUMBAR SPINE WITHOUT AND WITH CONTRAST CLINICAL INFORMATION: Low back pain, unspecified. COMPARISON: None available. TECHNIQUE: MRI of the lumbar spine was obtained using routine sequences with and without contrast. Intravenous contrast: (Gadavist) 6.5 mL. No reported immediate complications. FINDINGS: Last rib-bearing vertebra labeled T12. No bone marrow STIR signal abnormality. Bone marrow inhomogeneity. L2 level marginal osteophyte formation and disc desiccation. Multilevel Schmorl nodes in the endplates of the vertebral bodies lower thoracic upper lumbar spine. Grade 1 retrolisthesis L2-3. Conus medullaris ends at pedicle of L1 with normal signal. No abnormal enhancement within the leptomeningeal compartment or the prevertebral compartment. T12-L1: Bilateral facet joint hypertrophy as well as ligamentum flavum. Broad-based disc bulging. No compression upon elements. L1-2: Broad-based disc bulging. Facet joint and ligamentum flavum hypertrophy. No compression upon elements. L2-3: Broad-based disc bulging. Facet joint ligamentum flavum hypertrophy. Reduced AP diameter of the thecal sac and neuroforamina. L3-4: Broad-based disc bulging. Facet joint and ligamentum flavum hypertrophy. Fluid signal beneath the ligamentum flavum bilaterally. Central spinal canal and bilateral neuroforamina stenosis encroaching the neural limits. L4-5: Broad-based disc bulging. Facet joint and ligamentum flavum hypertrophy. Central spinal canal and bilateral neuroforamina stenosis encroaching the neural elements. L5-S1: Broad-based disc bulging. Facet joint hypertrophy. No central spinal canal stenosis. No gross neuroforamina stenosis. No prevertebral compartment hematoma, mass or fluid collections. MR/MR lumbar spine wo/w con IMPRESSION: No abnormal enhancement. Multilevel lumbar spondylosis L2-3 to L5-S1 resulting in central spinal canal and bilateral neuroforamina stenosis at L3-4 and L4-5 levels and to a lesser extent L2-3. Electronically signed by: Darian Carvalho MD 02/19/2025 02:09 PM EDT
[2025-02-19 14:01] LABS: MANUAL DIFF FLAG NO
[2025-02-19 15:03] LABS: Hematocrit 41.2 % (37.0-47.0); Hemoglobin 14.2 g/dl (12.0-16.0); Imm Gran Abs Auto 0.02 X10*3/uL (0.00-0.03); Imm Gran Pct Auto 0.3 % (0.0-0.4); Lymphocytes Absolute Auto 2.2 X10*3/uL (1.2-4.9); Mean Corpuscular HGB Conc 34.5 g/dl (31.0-35.0); Mean Corpuscular Hemoglobin 29.7 pg (27.0-33.0); Mean Corpuscular Volume 86.2 fL (80.0-98.0); NRBC Abs Auto 0.000 X10*3/uL (0.0-0.012); NRBC Pct Auto 0.0 /100WBC (0.0-0.2); Platelet Count 235 X10*3/uL (160-400); Red Blood Count 4.78 X10*6/uL (4.20-5.50); White Blood Count 6.2 X10*3/uL (4.8-10.8)
[2025-02-19 15:39] LABS: Alanine Aminotransferase 20 U/L (0-31); Albumin Level 4.4 g/dL (3.5-5.0); Alkaline Phosphatase 89 U/L (39-117); Anion Gap 12 (12-20); Aspartate Amino Transferase 28 U/L (5-31); Blood Urea Nitrogen 12 mg/dL (9-16); Calcium 9.7 mg/dL (8.4-10.2); Carbon Dioxide 28 mmol/L (22-29); Chloride 105 mmol/L (96-108); Estimated Glomerular Filt Rate > 60; Potassium 4.1 mmol/L (3.3-5.1); Sodium 141 mmol/L (135-145); Total Protein 6.7 g/dL (6.5-8.0)
== END 2025-02-19 12:38 | disposition home or self-care (01) ==
LOC: HO.MRI 12:37
PROVIDERS: Absent Provider Nurse Practitioner Family; PCP Physician Assistant; Visit Provider Surgery
DX: D17.1 Benign lipomatous neoplasm of skin and subcutaneous tissue of trunk (principal); K58.9 Irritable bowel syndrome, unspecified; M54.50 Low back pain, unspecified; R19.7 Diarrhea, unspecified; E11.9 Type 2 diabetes mellitus without complications; R22.2 Localized swelling, mass and lump, trunk
CPT/HCPCS: 36415; 72158; 80048; 80076; 84443; 85025; 86140; A9585

== ENCOUNTER → 2025-02-19 12:41 | Outpatient (BNV) | payer OTHER, SELFPAY | PROVIDERS: Absent Provider Nurse Practitioner Family; PCP Physician Assistant; Visit Provider Radiology Diagnostic Radiology | DX: M47.26 Other spondylosis with radiculopathy, lumbar region (principal) | CPT/HCPCS: 72158 ==

== ENCOUNTER 2025-02-20 15:14 | Outpatient (REF) | payer OTHER, SELFPAY ==
[2025-03-01 17:48] LABS: Calprotectin, Fecal 18 mcg/g
== END 2025-02-20 15:15 | disposition home or self-care (01) ==
LOC: HO.LNP 15:14
PROVIDERS: Visit Provider Nurse Practitioner Family
DX: R15.9 Full incontinence of feces (principal); R19.7 Diarrhea, unspecified
CPT/HCPCS: 82705; 83993

== ENCOUNTER 2025-04-10 14:34 | Outpatient (AMB) | payer OTHER, SELFPAY ==
--- NOTE | 2025-04-10 14:35 | MHC.OFFVIS ---
Vital Signs 04/10/25 14:39 Height 5 ft 4 in Weight 145 lb BMI 24.9 BP 132/84 Blood Pressure Location Rt brachial Position Sitting Pulse 72 Intake Visit Reasons: s/p MRI 02-19 Intake Note: Patient here to discuss lumbar MRI on 02-19-2025. 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 Accompanied by: Spouse Allergies glipizide Allergy (Unknown, Verified 04/10/25 14:39) hypoglycemia metformin Allergy (Unknown, Verified 04/10/25 14:39) GI upset Medication List - Last Reconciled 04/12/25 by Roe Heck MD acetaminophen (Tylenol Extra Strength) 1,000 mg PO Q6H PRN albuterol sulfate 90 mcg/actuation 2 puffs inhalation Q6H PRN amitriptyline 10 mg PO BEDTIME atorvastatin 10 mg PO DAILY blood sugar diagnostic (FreeStyle Lite Strips) Use daily As directed to check blood glucose blood-glucose meter (FreeStyle Lite Meter kit) Use daily As directed to check blood sugars empagliflozin (Jardiance) 10 mg PO QAM esomeprazole magnesium (Nexium) 40 mg PO DAILY lancets (FreeStyle Lancets) use daily as directed to check blood glucose metformin 500 mg PO BID sucralfate 1 g PO BEDTIME HPI HPI s/p MRI 02-19: Details: She is here for follow-up after I had scheduled her for an MRI of the lumbar area. She had been having pain to the right of the midline and she thinks that she has a ?lump? in the area. Previous imaging studies did not reveal any lump. On her last visit in the office, I was unable to feel a discrete mass on the area of concern. She says she this has same pain and tenderness on the right side of the lumbar area. [facility] Medical History Back pain Disc disorder Lumbar pain Gallstones Adhesion of tendon of hand Type 2 diabetes mellitus Multiple rib fractures HTN (hypertension) Hyperglycemia Dyslipidemia Conjunctivitis Cholelithiasis Acute sinusitis Surgical History History of colonoscopy Hx of cholecystectomy Hx of breast reduction, elective Family History Mother HTN (hypertension) Glioblastoma Father HTN (hypertension) Diabetes Sister Breast cancer Brother Heart attack Other FH: mental illness Social History Housing: House ([place]) Alcohol intake: current Patient Tobacco Use Status: Never used Tobacco e-Cigarette/Vaping Use: Never Used Second Hand Smoke Exposure: No service: No Current occupational status: employed Current occupation: [employer] Current occupational exposures/hazards: Yes Cognitive needs: No Hearing needs: Yes (deaf in right ear) Vision needs: Yes (glasses) Review of Systems Const Denies chills and Denies fever(s) Card Denies chest pain, Denies dyspnea and Denies dyspnea on exertion Resp Denies cough, Denies dyspnea and Denies dyspnea on exertion GI Denies hematochezia and Denies change in bowel habits Denies hematuria Musc Denies limited range of motion Neuro Denies focal weakness and Denies convulsions Psych Denies depression and Denies mood swings Physical Exam Vital Signs: Last Vital Signs Pulse 72 04/10/25 14:39 BP 132/84 04/10/25 14:39 BMI result Body Mass Index 24.9 Const General: comfortable and no acute distress Resp Effort & Inspection: normal respiratory effort Cardio Rate: regular rate GI Palpation (GI): Soft to palpation Back/Spine/Pelvis Other: I am unable to feel any mass on the lumbar area; she does have point tenderness to the right of the midline Assessment & Plan Assessment & Plan (1) Back pain: Code(s): M54.9 - Dorsalgia, unspecified Category: Medical Plan: I explained to her that I do not feel any discrete mass on the right lumbar area. I had sent her for an MRI and this shows multilevel lumbar spondylosis from L2-3 and L5-S1 with bilateral neuroforaminal stenosis at L3-4 and L4-5. Her ultrasound does not show any subcutaneous mass either . I am uncertain as to the etiology of her tenderness on the area. I am going to send her to the spine service for further evaluation. She is comfortable with the plan for now. She is welcome to come back to the office or call if she has any concerns down the line. Orders: Referrals Neuro Spine Referral M51.9 - Unspecified thoracic, thoracolumbar and lumbosacral intervertebral disc disorder Coding Level of Care Code Est Pt Level 3 (23569) Diagnoses Back pain M54.9
[2025-04-10 14:39] VITALS: BP 132/84; PULSE 72; BMI 24.9
== END 2025-04-10 14:58 | disposition home or self-care (01) ==
PROVIDERS: PCP Physician Assistant; Visit Provider Surgery
DX: M54.9 Dorsalgia, unspecified (principal)
CPT/HCPCS: 99213

== ENCOUNTER 2025-04-26 09:00 | Outpatient (AMB) | payer OTHER, SELFPAY ==
[2025-04-26 09:14] VITALS: BMI 24.9
--- NOTE | 2025-04-26 09:14 | HO.SPINEOV ---
Vital Signs 04/26/25 09:14 Height 5 ft 4 in Weight 145 lb BMI 24.9 Intake Visit Reasons: back pain Intake Note: Ms. Motta is here today c/o Low back pain that radiates to the hip and legs. 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 She was seen by Dr. Randhawa as you know and it sounded like he wanted to remove these lumps under sedation because there were little deeper than could be done in the office. An MRI done as part of the workup showed some disc degeneration, foraminal stenosis and facet arthropathy. She is referred today for follow-up on that. She currently reports no specific centralized back pain, lower extremity pain, discomfort etc.. She just takes Tylenol to deal with the pain from these lumps. PMH: She is a diabetic, history of GERD, she had a microhemorrhage of the brain for which they never found the exact source, tonsillectomy, breast reduction and cholecystectomy. Social hx: Does not smoke, drink or use any recreational drugs Medications: Jardiance, metformin, Nexium, sucralfate, Lipitor Allergies: None Physical exam: Awake alert oriented no acute distress, strength and reflexes normal. She does have tenderness to palpation in the right side of the low back occurred across near the iliac crest and just below where there are 2 small to medium size mobile rubbery masses. I had Dr. Villarreal see if he could feel them as well and he could feel him and generate the same kind of discomfort with palpation. Imaging review: Lumbar MRI done at [place] She has some basic age-related degeneration of the discs and some facet arthropathy with mild foraminal narrowing but nothing significant. We often see these kind of findings in patients who are asymptomatic. 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 She is due to possibly have them out with Dr. Randhawa at some point. He has left the practice. Her MRI shows that she has some basic disc degeneration, amongst other mild arthritic finding which certainly could be age related and we often see these typical findings in patients who are asymptomatic. Currently she has no lumbar symptoms it is more of these focal lumps. She does not need surgery on these MRI findings and can follow up with us on an as-needed basis at some point. She would like to seek out a 2nd opinion about having lumps removed, I told her she could follow-up with your office or her primary care doctor for 2nd opinion. Thank you for allowing us to care for your patient. The total time spent with this visit with this patient was 45 minutes reviewing history, physical exam, lumbar imaging review, and implementation of treatment plan or further diagnostic testing Jeancarlos Villarreal MD,PhD [facility] Coding Level of Care Code New Pt Level 4 (97050) Diagnoses Lump of skin of back R22.2
== END 2025-04-26 09:49 | disposition home or self-care (01) ==
LOC: HO.HNS 09:01
PROVIDERS: PCP Physician Assistant; Referring Provider Surgery; Visit Provider Physician Assistant
DX: R22.2 Localized swelling, mass and lump, trunk (principal)
CPT/HCPCS: 99204

== ENCOUNTER → 2025-04-26 09:00 | Outpatient (BNVA) | payer OTHER, SELFPAY | PROVIDERS: PCP Physician Assistant; Referring Provider Surgery; Visit Provider Physician Assistant | DX: R22.2 Localized swelling, mass and lump, trunk (principal); Z13.89 Encounter for screening for other disorder ==

== ENCOUNTER 2025-05-22 08:21 | Outpatient (AMB) | payer OTHER, SELFPAY ==
[2025-05-22 08:28] VITALS: BP 148/96; PULSE 78; O2SAT 99; BMI 24.4
--- NOTE | 2025-05-22 08:28 | A.OFFVIS_ITS ---
Vital Signs 05/22/25 08:28 Height 5 ft 4 in Weight 142 lb BMI 24.4 BP 148/96 H Blood Pressure Location Rt brachial Position Sitting Pulse 78 Pulse Source Pulse Oximeter Pulse Oximetry (%) 99 Oxygen Delivery Method Room Air Intake Visit Reasons: 3 MO F/U Discuss [facility] Intake Note: Est pt for diarrhea / fecal abn mgmt. Discuss procedure. CC; Pt denies any new GI changes or sx at this time. Pt confirms that she is taking her current Rx without complication. 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 Patient unable to take cholestyramine due to this liking the taste. Patient will try [id number] fiber supplement to help bulk her stools. Will rule out IBD. Patient reports that C diff and ova and parasites were rule out by [facility] after she had her surgery. Will check fecal fat qualitative. Reports acid reflux not well controlled. Will stop omeprazole and will add Nexium and sucralfate at bedtime. Patient will follow-up in 3 months so we can discuss going for upper endoscopy and colonoscopy. Patient is agreeable to this plan and verbalizes understanding of instructions. She was given the opportunity to ask questions and all questions answered. ? Thank you for allowing me to participate in her care Orders C Reactive Protein Today K58.9 Calprotectin, Fecal Today R15.9 Fecal Fat Qualitative Today R19.7 New sucralfate 1 g PO BEDTIME 30 tabs 4RF R19.7 esomeprazole magnesium (Nexium) 40 mg PO DAILY 30 caps 3RF K21.9 Discontinued omeprazole Discontinued Reason: Doctor's Order 40 mg (2 x 20 mg) PO BID 90 days 360 caps 0RF TODAY'S VISIT Patient is here today for follow-up, discuss lab results and to discuss prep. Patient will be going for upper endoscopy colonoscopy. Patient reports that she is doing better with the combination of Nexium and sucralfate. Patient denies dyspepsia, dysphagia or odynophagia. Patient is still trying to avoid dietary triggers. Mainly her symptoms are postprandial and loose stools occasionally. Patient feels like the sucralfate help. Patient is trying to eat better and avoid certain triggers. Denies dyspepsia, dysphagia or odynophagia. Patient denies melena, hematochezia, unintentional weight loss or ribbon like stools with patient denies issues with anesthesia in the past. No history of sleep apnea. Not on any anticoagulation number patient. Patient denies any cardiac or respiratory symptoms. [facility] Medical History Back pain Disc disorder Lumbar pain Gallstones Adhesion of tendon of hand Type 2 diabetes mellitus Multiple rib fractures HTN (hypertension) Hyperglycemia Dyslipidemia Conjunctivitis Cholelithiasis Acute sinusitis Surgical History History of colonoscopy Hx of cholecystectomy Hx of breast reduction, elective Family History Mother HTN (hypertension) Glioblastoma Father HTN (hypertension) Diabetes Sister Breast cancer Brother Heart attack Other FH: mental illness Social History Housing: House ([place]) Alcohol intake: current Patient Tobacco Use Status: Never used Tobacco e-Cigarette/Vaping Use: Never Used Second Hand Smoke Exposure: No service: No Current occupational status: employed Current occupation: [employer] [facility] [employer] Current occupational exposures/hazards: Yes Cognitive needs: No Hearing needs: Yes (deaf in right ear) Vision needs: Yes (glasses) Review of Systems Const Denies weight gain and Denies weight loss ENT Reports no additional complaints, Denies dysphagia and Denies odynophagia Card Reports no additional complaints Resp Reports no additional complaints GI Reports abdominal pain, Denies belching, Denies melena, Denies bloating, Denies change in bowel habits, Denies dysphagia, Denies excessive flatus, Reports dyspepsia, Reports heartburn, Reports diarrhea, Denies loose stools, Denies nausea, Denies odynophagia and Denies vomiting Reports no additional complaints Musc Reports no additional complaints Neuro Reports no additional complaints Psych Reports no additional complaints Endo Reports no additional complaints Physical Exam Vital Signs: Last Vital Signs Pulse 78 05/22/25 08:28 BP 148/96 H 05/22/25 08:28 Pulse Ox 99 05/22/25 08:28 Oxygen Delivery Method Room Air 05/22/25 08:28 BMI result Body Mass Index 24.4 Const General: healthy appearing, no acute distress and well developed Nutritional Appearance: well nourished Orientation/consciousness: patient oriented x3 Resp Effort & Inspection: normal respiratory effort, able to speak in complete sentences, no tracheal deviation and symmetric chest movement Auscultation: clear to auscultation bilaterally Cardio Rate: regular rate GI Inspection: Yes normal to inspection and No distended Palpation (GI): Soft to palpation, not firm, nontender and No hepatosplenomegaly present Auscultation: normal bowel sounds General: Yes no CVA tenderness Back/Spine/Pelvis Back: no CVA tenderness Skin General skin exam: elasticity normal, turgor normal and dry skin Neuro General: patient oriented x3 Psych Appearance: grossly normal Mental Status: mental status grossly normal Results AMB Hemoglobin A1c AMB Hemoglobin A1c 6.5 % Last Edit by Mary Gramajo CMA on 05/22/25 10:03 Results Reviewed Results Reviewed: Laboratory Tests 02/19/25 02/20/25 14:00 12:00 Direct Bilirubin 0.4 AST 28 ALT 20 Alkaline Phosphatase 89 C-Reactive Protein < 0.10 TSH 1.11 Stool Fat, Qual NORMAL Stool Calprotectin 18 Assessment & Plan Assessment & Plan (1) S/P laparoscopic cholecystectomy: Code(s): Z90.49 - Acquired absence of other specified parts of digestive tract Category: Medical (2) Screen for colon cancer: Code(s): Z12.11 - Encounter for screening for malignant neoplasm of colon (3) GERD (gastroesophageal reflux disease): Code(s): K21.9 - Gastro-esophageal reflux disease without esophagitis Qualifiers: Esophagitis presence: esophagitis presence not specified Qualified Code(s): K21.9 - Gastro-esophageal reflux disease without esophagitis Plan Patient will continue taking Nexium in the morning and sucralfate as needed at bedtime. She will be sent for upper endoscopy to rule out gastritis, esophagitis, duodenitis, gastric or peptic ulcer, Barnes's. Patient also will be sent for colonoscopy. What to expect before during and after procedure discussed with patient. Stressed the importance of good bowel prep and clear liquid diet with patient. She will follow-up in our office after the procedures, sooner on as needed basis. She is agreeable to this plan and verbalizes understanding of instructions. She was given the opportunity to ask questions and all questions answered. Thank you for allowing me participate in her care Orders: Referrals GI Procedure Notification Z12.11 - Encounter for screening for malignant neoplasm of colon, K21.9 - Gastro-esophageal reflux disease without esophagitis Medications: New bisacodyl (Dulcolax (bisacodyl)) take 4 tabs at noon the day before your colonoscopy 20 mg (4 x 5 mg) PO ONCE 4 tabs 0RF constipation 1 day Z12.11 - Encounter for screening for malignant neoplasm of colon polyethylene glycol 3350 (Miralax) As directed by gastroenterology department at [facility] 238 grams PO ONCE 238 grams 0RF Z12.11 - Encounter for screening for malignant neoplasm of colon Refilled sucralfate 1 g PO BEDTIME 90 tabs 3RF R19.7 - Diarrhea, unspecified esomeprazole magnesium (Nexium) 40 mg PO DAILY 90 caps 3RF K21.9 - Gastro- esophageal reflux disease without esophagitis Coding Level of Care Code Est Pt Level 4 (81624) Complex EM visit Add On G2211 Diagnoses S/P laparoscopic cholecystectomy Z90.49 Screen for colon cancer Z12.11 Gastroesophageal reflux disease, unspecified whether esophagitis present K21.9 Esophagitis presence: esophagitis presence not specified Time Spent (min) 35 Comment 25 minutes spent with patient and additional 10 minutes spent reviewing her records
== END 2025-05-22 09:02 | disposition home or self-care (01) ==
LOC: HO.HGI 08:22
PROVIDERS: PCP Physician Assistant; Visit Provider Nurse Practitioner Family
DX: Z01.818 Encounter for other preprocedural examination (principal); Z12.11 Encounter for screening for malignant neoplasm of colon; K21.9 Gastro-esophageal reflux disease without esophagitis; Z90.49 Acquired absence of other specified parts of digestive tract
CPT/HCPCS: 99214; G2211

== ENCOUNTER → 2025-05-22 08:21 | Outpatient (BNVA) | payer OTHER, SELFPAY | PROVIDERS: PCP Physician Assistant; Visit Provider Nurse Practitioner Family | DX: Z12.11 Encounter for screening for malignant neoplasm of colon (principal); E11.9 Type 2 diabetes mellitus without complications; E78.5 Hyperlipidemia, unspecified; R03.0 Elevated blood-pressure reading, without diagnosis of hypertension; R22.2 Localized swelling, mass and lump, trunk; R51.9 Headache, unspecified; K21.9 Gastro-esophageal reflux disease without esophagitis; Z90.49 Acquired absence of other specified parts of digestive tract | CPT/HCPCS: 83036; 99212 ==

== ENCOUNTER 2025-05-22 09:45 | Outpatient (AMB) | payer OTHER, SELFPAY ==
--- NOTE | 2025-05-22 09:49 | A.OFFPC_ITS ---
Vital Signs 05/22/25 09:51 05/22/25 10:05 Height 5 ft 4 in Weight 144 lb 4 oz BMI 24.8 BP 136/98 H 132/94 H Blood Pressure Location Rt brachial Lt brachial Position Sitting Sitting Respiration 14 Pulse 91 Pulse Source Pulse Oximeter Pulse Oximetry (%) 98 Oxygen Delivery Method Room Air Intake Visit Reasons: dm, hld Intake Note: Diabetes follow up Wet Process Technician Required: No Allergies bee pollen (bee stings) Allergy (Severe, Verified 05/22/25 09:50) Respiratory Distress glipizide Allergy (Unknown, Verified 05/22/25 09:50) hypoglycemia metformin Allergy (Unknown, Verified 05/22/25 09:50) GI upset Medication List - Last Reconciled 05/22/25 by Scarlett Anguiano PA-C acetaminophen (Tylenol Extra Strength) 1,000 mg PO Q6H PRN albuterol sulfate 90 mcg/actuation 2 puffs inhalation Q6H PRN amitriptyline 10 mg PO BEDTIME atorvastatin 10 mg PO DAILY bisacodyl (Dulcolax (bisacodyl)) 20 mg (4 x 5 mg) PO ONCE 1 day blood sugar diagnostic (FreeStyle Lite Strips) Use daily As directed to check blood glucose blood-glucose meter (FreeStyle Lite Meter kit) Use daily As directed to check blood sugars esomeprazole magnesium (Nexium) 40 mg PO DAILY lancets (FreeStyle Lancets) use daily as directed to check blood glucose polyethylene glycol 3350 (Miralax) 238 grams PO ONCE sucralfate 1 g PO BEDTIME Tobacco use date assessed: 05/22/25 Dental Screening Dental Screen Date: 10/17/24 HPI dm, hld HPI Details Patient is a 59-year-old female with a significant past medical history of type 2 diabetes, hyperlipidemia and GERD presenting today for a Follow up. Musculoskeletal: Following with General surgery for a lump on her low back. It has fluctuated in size. She states it still bothers her and she would like this removed. Dr. Heck did not feel comfortable removing this and sent her to neurosurgery who felt that this could be excised by General surgery. She would like a 2nd opinion at [facility]. CV: Blood pressure today in the office is elevated at 132/94. She states it has never this high. 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 She believes it is elevated because she did not sleep yet and she is coming in from work and was late leaving another appointment and states that traffic was awful. Cholesterol is managed with atorvastatin 10 mg. Tolerating this well. Endo: A1c today is 6.5. She is currently on metformin 500 mg twice a day and Jardiance 10 mg daily. She states that the appetite suppression stays about the same but the diarrhea has gotten better.. glipizde in the past caused hypoglycemia. GI: Managing GERD with the Nexium and is scheduled with GI. Neuro: On amitriptyline 10 mg per management of headaches. She says that she has been taking the amitriptyline as needed per recommendation of Neurology. Recently has had an increase in the frequency of headaches. Has followed with Neurology [facility] in the past. Psych: has had a lot of stressors and has coping mechanisms. She has strong relationship with scientologist, she is a [employer], and finds this helpful. [place] [facility] [place] Bone density: UTD, [place] [facility] [place] - wnl Pap: overdue- states will book Colonoscopy: Scheduled with [facility] Medical History Back pain Disc disorder Lumbar pain Gallstones Adhesion of tendon of hand Type 2 diabetes mellitus Multiple rib fractures HTN (hypertension) Hyperglycemia Dyslipidemia Conjunctivitis Cholelithiasis Acute sinusitis Surgical History History of colonoscopy Hx of cholecystectomy Hx of breast reduction, elective Family History Mother HTN (hypertension) Glioblastoma Father HTN (hypertension) Diabetes Sister Breast cancer Brother Heart attack Other FH: mental illness Social History Housing: House ([facility]) Alcohol intake: current Patient Tobacco Use Status: Never used Tobacco e-Cigarette/Vaping Use: Never Used Second Hand Smoke Exposure: No service: No Current occupational status: employed Current occupation: [employer] Current occupational exposures/hazards: Yes Cognitive needs: No Hearing needs: Yes (deaf in right ear) Vision needs: Yes (glasses) Questionnaire Thrive Questionnaire Date Thrive assessed: 09/08/24 I am a: Patient What is your living situation today?: I have a steady place to live Within the past 12 months, did the food you bought not last and you didn't have the money to get more?: Never true Within the past 12 months, did you worry whether your food would run out before you got money to buy more?: Never true Do you have trouble paying for medicines?: No Do you have trouble getting transportation to medical appointments?: No Do you have trouble paying your heating and electricity bill?: No Do you have trouble taking care of your child, family member or friend?: No Do you have trouble with day-to-day activities such as bathing, preparing meals, shopping, managing finances, etc.?: No Are you currently unemployed and looking for a job?: No Are you interested in more education?: No Please select the resources that you would like help with: None Currently or been in a relationship where the following occur: No concerns reported THRIVE Score: 0 AARON-7 AMB Questionnaire AARON-7 Date AARON - 7 assessed: 09/12/24 Source: Developed by Drs. Noel Solorio, Andreina Lamas, Marlon Suarez and colleagues, with an educational smiley from [employer]. Physical exam (Primary Care) Vital Signs: Last Vital Signs Pulse 91 05/22/25 09:51 Resp 14 05/22/25 09:51 BP 132/94 H 05/22/25 10:05 Pulse Ox 98 05/22/25 09:51 Oxygen Delivery Method Room Air 05/22/25 09:51 BMI result Body Mass Index 24.8 Tobacco/Smoking Status: Tobacco use Status Tobacco use date assessed 05/22/25 05/22/25 09:55 Patient Tobacco Use Status Never used Tobacco 05/22/25 09:55 e-Cigarette/Vaping Use Never Used 05/22/25 09:55 Thrive Assessment: Date of Thrive Assessment Date Thrive assessed 09/08/24 05/22/25 09:55 Currently or been in a relationship where the following occur: No concerns reported Const Orientation/consciousness: patient oriented x3 HENMT Ears: hearing grossly normal bilaterally Neck Thyroid: Thyroid normal Lymphatic: no lymphadenopathy noted Resp Auscultation: clear to auscultation bilaterally Cardio Rate: regular rate Rhythm: regular rhythm Heart sounds: S1 normal heart sound present and S2 normal heart sound present GI Inspection: Yes normal to inspection Palpation (GI): Soft to palpation and Other GI palpation findings present (nontender, no cva tenderness) Auscultation: normoactive bowel sounds Rectal Exam - Female: deferred Skin General skin exam: no rashes or lesions noted Neuro General: patient oriented x3, gait normal and no focal motor deficits Results AMB Hemoglobin A1c AMB Hemoglobin A1c 6.5 % Last Edit by Mary Gramajo CMA on 05/22/25 10:03 Results Reviewed Results Reviewed: Laboratory Last Values Hgb A1c (Clinic) 6.5 % (4.0-6.0) H 05/22/25 09:59 Coding Level of Care Code Est Pt Level 4 (61183) Complex EM visit Add On G2211 Diagnoses Dyslipidemia E78.5 Controlled type 2 diabetes mellitus E11.9 Elevated blood pressure reading without diagnosis of hypertension R03.0 Lump of skin of back R22.2 Frequent headaches R51.9 Assessment & Plan Assessment & Plan (1) Dyslipidemia: Code(s): E78.5 - Hyperlipidemia, unspecified Category: Medical Plan: Labs ordered (2) Controlled type 2 diabetes mellitus: Code(s): E11.9 - Type 2 diabetes mellitus without complications Category: Medical Plan: increase jardiance to 25 mg decrease metformin to 500 mg -she wants to ultimately get off of metformin (3) Elevated blood pressure reading without diagnosis of hypertension: Code(s): R03.0 - Elevated blood-pressure reading, without diagnosis of hypertension Category: Medical Plan: gets bps frequently at work and states it is normal (4) Lump of skin of back: Code(s): R22.2 - Localized swelling, mass and lump, trunk Category: Medical Plan: Referral to General surgery at [facility] (5) Frequent headaches: Code(s): R51.9 - Headache, unspecified Category: Medical Plan: Referral back to Neurology at [facility]. Advised to take the amitriptyline nightly. Orders: Orders AMB Hemoglobin A1c Today E11.9 - Type 2 diabetes mellitus without complications Complete Blood Count Auto Diff Today E11.9 - Type 2 diabetes mellitus without complications, E78.5 - Hyperlipidemia, unspecified Hemoglobin A1c Today E11.9 - Type 2 diabetes mellitus without complications, E78.5 - Hyperlipidemia, unspecified, R73.01 - Impaired fasting glucose TSH reflex Free T4 Today E11.9 - Type 2 diabetes mellitus without complications, E78.5 - Hyperlipidemia, unspecified Comprehensive [place]. Panel Fast Today E11.9 - Type 2 diabetes mellitus without complications, E78.5 - Hyperlipidemia, unspecified Lipid Panel Today E11.9 - Type 2 diabetes mellitus without complications, E78.5 - Hyperlipidemia, unspecified Microalbumin, Random (w Creat) Today E11.9 - Type 2 diabetes mellitus without complications, E78.5 - Hyperlipidemia, unspecified Referrals Neurology Referral R03.0 - Elevated blood-pressure reading, without diagnosis of hypertension, R51.9 - Headache, unspecified General Surgery Referral R22.2 - Localized swelling, mass and lump, trunk Medications: New empagliflozin (Jardiance) 25 mg PO QAM 90 tabs 2RF metformin ER (Glucophage XR) 500 mg PO DAILY 90 tabs 3RF
[2025-05-22 09:51] VITALS: BP 136/98; PULSE 91; RESP 14; O2SAT 98; BMI 24.8
[2025-05-22 10:05] VITALS: BP 132/94
== END 2025-05-22 10:48 | disposition home or self-care (01) ==
LOC: HO.HMCFM 09:45
PROVIDERS: PCP Physician Assistant; Visit Provider Physician Assistant
DX: E78.5 Hyperlipidemia, unspecified (principal); E11.9 Type 2 diabetes mellitus without complications; R03.0 Elevated blood-pressure reading, without diagnosis of hypertension; R22.2 Localized swelling, mass and lump, trunk; R51.9 Headache, unspecified

== ENCOUNTER 2025-07-30 06:29 | Day surgery (SDC) | payer OTHER, SELFPAY ==
--- NOTE | 2025-07-26 10:20 | HO.ANESPROP2 ---
Documented by User: Leigh Ann Be NP 07/26/25 10:21 HPI - Anesthesia Eval Consult details Narrative: 59yo F for Upper Endoscopy and Colonoscopy Anesthesia Pre-Procedure Meds Is the patient on any of the following meds?: SGLT2 Inhib PMFSH Active Problems Active Problems: All Active Problems Frequent headaches (Acute) Elevated blood pressure reading without diagnosis of hypertension (Acute) Back pain (Acute) Disc disorder (Acute) Lumbar pain (Acute) Lipoma of back (Acute) Right hand pain (Acute) Chest pain made worse by breathing (Acute) Fatigue (Acute) Pre-syncope (Acute) Lump of skin of back (Acute) Diarrhea (Acute) Posterior left knee pain (Acute) S/P laparoscopic cholecystectomy (Acute) Dyslipidemia (Acute) Controlled type 2 diabetes mellitus (Acute) Past Medical History Medical History GERD (gastroesophageal reflux disease) Silent micro-hemorrhage of brain Deafness Back pain Disc disorder Lumbar pain Gallstones Adhesion of tendon of hand Type 2 diabetes mellitus Multiple rib fractures HTN (hypertension) Hyperglycemia Dyslipidemia Conjunctivitis Cholelithiasis Acute sinusitis Family History Family History Mother HTN (hypertension) Glioblastoma Father HTN (hypertension) Diabetes Sister Breast cancer Brother Heart attack Other FH: mental illness Surgical History Surgical History Hx of hand surgery Hx of tonsillectomy History of colonoscopy Hx of cholecystectomy Hx of breast reduction, elective Social History Social History Housing: House ([facility]) Alcohol intake: current Patient Tobacco Use Status: Never used Tobacco e-Cigarette/Vaping Use: Never Used Second Hand Smoke Exposure: No Use of substances other than those prescribed or required for medical reasons: No Are you DNR?: No Advance Directives: No Advance Directives Information Provided: Yes service: No Current occupational status: employed 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[employer] Current occupational exposures/hazards: Yes Cognitive needs: No Hearing needs: Yes (deaf in right ear) Vision needs: Yes (glasses) Meds Allergies Allergy/AdvReac Type Severity Reaction Status Date / Time bee pollen (bee stings) Allergy Severe Respiratory Verified 05/22/25 09:50 Distress Home Medications ?Medication ?Instructions ?Recorded ?Confirmed ?Last Taken ?Type acetaminophen 500 mg tablet 1,000 mg PO Q6H PRN Pain 05/30/24 07/30/25 Unknown History (Tylenol Extra Strength) amitriptyline 10 mg tablet 10 mg PO BEDTIME 05/30/24 07/30/25 Unknown History Assessment and Plan Assessment Anesthesia Assessment: Chart Reviewed Documented by User: Vaibhav Kennedy MD 07/30/25 08:10 PMFSH Past Medical History Medical History GERD (gastroesophageal reflux disease) Silent micro-hemorrhage of brain Deafness Back pain Disc disorder Lumbar pain Gallstones Adhesion of tendon of hand Type 2 diabetes mellitus Multiple rib fractures HTN (hypertension) Hyperglycemia Dyslipidemia Conjunctivitis Cholelithiasis Acute sinusitis Functional capacity: independent ambulation Family History Family History Mother HTN (hypertension) Glioblastoma Father HTN (hypertension) Diabetes Sister Breast cancer Brother Heart attack Other FH: mental illness Family history of problems with anesthesia: No Surgical History Surgical History Hx of hand surgery Hx of tonsillectomy History of colonoscopy Hx of cholecystectomy Hx of breast reduction, elective History of Problems with Anesthesia: No Social History Social History Housing: House ([facility]) Alcohol intake: current Patient Tobacco Use Status: Never used Tobacco e-Cigarette/Vaping Use: Never Used Second Hand Smoke Exposure: No Use of substances other than those prescribed or required for medical reasons: No Are you DNR?: No Advance Directives: No Advance Directives Information Provided: Yes service: No Current occupational status: employed 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[employer] Current occupational exposures/hazards: Yes Cognitive needs: No Hearing needs: Yes (deaf in right ear) Vision needs: Yes (glasses) Meds Allergies Allergy/AdvReac Type Severity Reaction Status Date / Time bee pollen (bee stings) Allergy Severe Respiratory Verified 05/22/25 09:50 Distress Home Medications ?Medication ?Instructions ?Recorded ?Confirmed ?Last Taken ?Type acetaminophen 500 mg tablet 1,000 mg PO Q6H PRN Pain 05/30/24 07/30/25 Unknown History (Tylenol Extra Strength) amitriptyline 10 mg tablet 10 mg PO BEDTIME 05/30/24 07/30/25 Unknown History Exam Exam Date and Time: 07/30/2025 Airway Mallampati Class: II TM Dist: >3cm Neck ROM: Full Partial: Lower Loose/Missing/Broken Teeth: No Heart: rrr Lungs: cta Other: normal Assessment and Plan Assessment Anesthesia Assessment: Anesthesia Plan Discussed Final Anesthetic Review Family History of Problems with Anesthesia: No History of Problems with Anesthesia: No NPO: No ASA Class: II Final Preanesthetic Review: No Changes in Pt Med Stat, Meds/Allgs Chart Reviewed, Consent Obtained/Reviewed and Anes Risks/Benef Reviewed Patient Risk: Low Procedure Risk: Low Anesthetic Plan Anesthetic Plan: MAC: Disposition: Standard PACU
[2025-07-26 11:54] VITALS: BMI 24.4
[2025-07-30 06:49] VITALS: BMI 24.4
[2025-07-30 06:57] VITALS: BP 135/99; PULSE 92; RESP 14; TEMP 36.1; O2SAT 99
[2025-07-30] MEDS: Lactated Ringers 1,000 ML 100 ML IVCONT (07:05)
[2025-07-30 07:11] LABS: Glucose, Whole Blood 167 mg/dL (60-115)
--- NOTE | 2025-07-30 07:42 | MHC.SHP ---
Pre-Procedural Eval Section A - 24 Hr Update-Section A only Date of Service: 07/30/25 Section B - Complete if H&P > 30 days Chief Complaint: gerd,screening Details of Present Illness: pain Disc disorder Lumbar pain Gallstones Adhesion of tendon of hand Type 2 diabetes mellitus Multiple rib fractures HTN (hypertension) Hyperglycemia Dyslipidemia Conjunctivitis Cholelithiasis Acute sinusitis Surgical History History of colonoscopy Hx of cholecystectomy Hx of breast reduction, elective Present Medications: see Short Stay Collaborative assessment Allergies: Allergies Allergy/AdvReac Type Severity Reaction Status Date / Time bee pollen (bee stings) Allergy Severe Respiratory Verified 05/22/25 09:50 Distress Review of Systems Review of Systems Comment: 10 point ROS negative Exam Exam Comment: Gen appear: No acute distress HEENT: no icterus Chest: No overt resp distress Abd: soft, nontender, nondistended Psych: Stable affect, answering questions appropriately Neuro: A/Ox3 noted to move all extremities spontaneously Ext: no peripheral edema Plan Diagnosis/Plan: Unchanged I have reviewed the history and physical and performed a pertinent physical examination on my patient. No changes have occurred unless specified. Time Spent With Patient Time: Total time managing care of this patient today ____ minutes.
--- NOTE | 2025-07-30 08:26 | P.OPN-COLO_ITS ---
Colonoscopy Operative Note Operative Note Date of Service: 07/30/25 Narrative: Procedure: Upper endoscopy and colonoscopy Indication: GERD, screening Endoscopist: Leandra Hensley MD Anesthesia Provider: Dr Kennedy Anesthesia type: MAC Instrument: [id number] and [id number] EGD Procedure:?? The procedure, indications, preparation and potential complications were reviewed with the patient, who indicated understanding and gave written informed consent to proceed. The endoscope was introduced through the mouth, and advanced to the 2nd part of the duodenum. The mucosa was carefully examined on slow withdrawal of the endoscope. The patient tolerated the procedure well. There were no immediate complications.? EGD Findings:? * Esophagus:? Normal esophageal mucosa was noted. The Z-line was at 38 cm and irregular to < 1 cm. The diaphragmatic pinch was at 40 cm. Cold forceps biopsies were taken from middle and lower esophagus to rule out eosinophilic esophagitis. * Stomach:? Normal gastric mucosa. Few polyps were noted in the fundus of the stomach. Cold forceps polypectomy was performed for a few of these for histology. Retroflexion was performed in the cardia that showed Hill grade 2 hiatal hernia. Random cold forceps biopsies were taken from the stomach. * Duodenum:? Normal duodenal mucosa. Colonoscopy Procedure:? The patient was then turned for the colonoscopy. A digital rectal exam was performed which was abnormal for external hemorrhoids.? A distal attachment cap was affixed to the tip of the scope and the colonoscope was then inserted through the anus and advanced through the colon and advanced to the cecum at 80 cm.? Appendiceal orifice and ileocecal valve were identified. Mucosa was carefully examined under high definition white light as the instrument was slowly withdrawn in a retrograde panoramic fashion. Retroflexion was performed in rectum. The procedure was not difficult. The quality of the prep was BBPS: 3+2+3 = adequate Withdrawal time 14 minutes Limitations: No limitations Findings: Mucosa: Normal colon mucosa. Protruding lesions: * Medium internal hemorrhoids without stigmata of recent bleeding. Impression: 1. Normal esophagus (biopsy) 2. Hiatal hernia 3. Gastric polyps (biopsy) 4. Normal duodenum 5. Normal colon mucosa 6. Internal and external hemorrhoids Recommendations:?? * Follow-up path results * Avoid NSAIDs * H Pylori treatment if biopsies + * Repeat colonoscopy for CRC screening in 10 years.
[2025-07-30 08:35] VITALS: BP 148/82; PULSE 86; RESP 15; TEMP 36.4; O2SAT 95
[2025-07-30 08:50] VITALS: BP 142/97; PULSE 74; RESP 15; O2SAT 100
== END 2025-07-30 09:25 | disposition home or self-care (01) ==
PROVIDERS: PCP Physician Assistant; Visit Provider Internal Medicine
PROC: (CPT 45378; principal; 2025-07-30 07:30)
DX: Z12.11 Encounter for screening for malignant neoplasm of colon (principal); K21.9 Gastro-esophageal reflux disease without esophagitis; Z90.49 Acquired absence of other specified parts of digestive tract; K31.7 Polyp of stomach and duodenum; K64.8 Other hemorrhoids; K64.4 Residual hemorrhoidal skin tags; K44.9 Diaphragmatic hernia without obstruction or gangrene; E11.9 Type 2 diabetes mellitus without complications
CPT/HCPCS: 45378; 43239; 82947; 88305; 88342; J2003; J2704; J3010

== ENCOUNTER → 2025-07-30 06:29 | Outpatient (BNV) | payer OTHER, SELFPAY | PROVIDERS: PCP Physician Assistant; Visit Provider Internal Medicine | DX: K31.9 Disease of stomach and duodenum, unspecified (principal); K21.9 Gastro-esophageal reflux disease without esophagitis | CPT/HCPCS: 43239; 43250 ==

== ENCOUNTER 2025-08-20 14:09 | Outpatient (AMB) | payer OTHER, SELFPAY ==
--- NOTE | 2025-08-20 14:10 | A.OFFVIS_ITS ---
Vital Signs 08/20/25 14:15 Height 5 ft 4 in Weight 143 lb BMI 24.5 BP 142/86 H Blood Pressure Location Rt brachial Position Sitting Pulse 86 Pulse Source Pulse Oximeter Pulse Oximetry (%) 98 Oxygen Delivery Method Room Air Intake Visit Reasons: s/p double R/S from 08/21 per prov req. Intake Note: Est pt for GERD + fecal abn mgmt. S/P Double. CC; Pt denies any GI sx or concerns at this time. Confirms her current therapies are working as intended. Enforcement Officer Required: No Accompanied by: Self / Same As Patient Allergies bee pollen (bee stings) Allergy (Severe, Verified 08/20/25 14:11) Respiratory Distress HPI HPI s/p double R/S from 08/21 per prov req.: Details: LAST VISIT S/P laparoscopic cholecystectomy Screen for colon cancer GERD (gastroesophageal reflux disease) Plan Patient will continue taking Nexium in the morning and sucralfate as needed at bedtime. She will be sent for upper endoscopy to rule out gastritis, esophagitis, duodenitis, gastric or peptic ulcer, Barnes's. Patient also will be sent for colonoscopy. What to expect before during and after procedure discussed with patient. Stressed the importance of good bowel prep and clear liquid diet with patient. She will follow-up in our office after the procedures, sooner on as needed basis. She is agreeable to this plan and verbalizes understanding of instructions. She was given the opportunity to ask questions and all questions answered. ? Thank you for allowing me participate in her care Referrals GI Procedure Notification Z12.11, K21.9 New bisacodyl (Dulcolax (bisacodyl)) take 4 tabs at noon the day before your colonoscopy 20 mg (4 x 5 mg) PO ONCE 4 tabs 0RF constipation 1 day Z12.11 polyethylene glycol 3350 (Miralax) As directed by gastroenterology department at [facility] 238 grams PO ONCE 238 grams 0RF Z12.11 Refilled sucralfate 1 g PO BEDTIME 90 tabs 3RF R19.7 esomeprazole magnesium (Nexium) 40 mg PO DAILY 90 caps 3RF K21.9 UPPER ENDOSCOPY AND COLONOSCOPY EGD Findings:? * Esophagus:? Normal esophageal mucosa was noted. The Z-line was at 38 cm and irregular to < 1 cm. The diaphragmatic pinch was at 40 cm. Cold forceps biopsies were taken from middle and lower esophagus to rule out eosinophilic esophagitis. * Stomach:? Normal gastric mucosa. Few polyps were noted in the fundus of the stomach. Cold forceps polypectomy was performed for a few of these for histology. Retroflexion was performed in the cardia that showed Hill grade 2 hiatal hernia. Random cold forceps biopsies were taken from the stomach. * Duodenum:? Normal duodenal mucosa. Colonoscopy Procedure:? The patient was then turned for the colonoscopy. A digital rectal exam was performed which was abnormal for external hemorrhoids.? A distal attachment cap was affixed to the tip of the scope and the colonoscope was then inserted through the anus and advanced through the colon and advanced to the cecum at 80 cm.? Appendiceal orifice and ileocecal valve were identified. Mucosa was carefully examined under high definition white light as the instrument was slowly withdrawn in a retrograde panoramic fashion. Retroflexion was performed in rectum. The procedure was not difficult. The quality of the prep was BBPS: 3+2+3 = adequate Withdrawal time 14 minutes Limitations: No limitations Findings: Mucosa: Normal colon mucosa. Protruding lesions: * Medium internal hemorrhoids without stigmata of recent bleeding.Impression: 1. Normal esophagus (biopsy) 2. Hiatal hernia 3. Gastric polyps (biopsy) 4. Normal duodenum 5. Normal colon mucosa 6. Internal and external hemorrhoids Recommendations:?? * Follow-up path results * Avoid NSAIDs * H Pylori treatment if biopsies + * Repeat colonoscopy for CRC screening in 10 years. PATHOLOGY RESULTS Diagnosis A. Stomach, random, biopsy: Gastric antral and body mucosa with minimal chronic inactive gastritis; negative for H. pylori, intestinal metaplasia and dysplasia. B. Gastric polyp, biopsy: Fundic gland polyps with focal minimal chronic inactive inflammation; negative for H. pylori, intestinal metaplasia and dysplasia. C. Esophagus, lower, biopsy: Squamous mucosa with no specific change; no evidence of eosinophilic esophagitis; no columnar mucosa present. D. Esophagus, middle, biopsy: Squamous mucosa with no specific change; no evidence of eosinophilic esophagitis; no columnar mucosa present TODAY'S VISIT Patient is here today for follow-up and to discuss upper endoscopy and colonoscopy results. Patient denies any ill effects from the prep, anesthesia or procedure itself. Patient reports to be feeling well. Patient is currently taking Nexium and reports that her symptoms are suppressed. Patient denies any acid reflux. Denies any dyspepsia, dysphagia or odynophagia. Patient had normal colonoscopy and recommendation was for 10 year follow-up. FGP sound without intestinal metaplasia or dysplasia. No H pylori. Patient denies any family history of CRC. Patient reports to be feeling fairly well and denies any GI concerning symptoms [facility] Medical History (Updated 08/20/25 @ 15:15 by Keesha King, [facility]-) GERD (gastroesophageal reflux disease) Silent micro-hemorrhage of brain Deafness Back pain Disc disorder Lumbar pain Gallstones Adhesion of tendon of hand Type 2 diabetes mellitus Multiple rib fractures HTN (hypertension) Hyperglycemia Dyslipidemia Conjunctivitis Cholelithiasis Acute sinusitis Surgical History Hx of excision of mass Hx of hand surgery Hx of tonsillectomy History of colonoscopy Hx of cholecystectomy Hx of breast reduction, elective Family History Mother HTN (hypertension) Glioblastoma Father HTN (hypertension) Diabetes Sister Breast cancer Brother Heart attack Other FH: mental illness Social History Housing: House (Formerly [facility]) Alcohol intake: current Patient Tobacco Use Status: Never used Tobacco e-Cigarette/Vaping Use: Never Used Second Hand Smoke Exposure: No service: No Current occupational status: employed Current occupation: [employer] Current occupational exposures/hazards: Yes Cognitive needs: No Hearing needs: Yes (deaf in right ear) Vision needs: Yes (glasses) Review of Systems Const Denies weight gain and Denies weight loss ENT Reports no additional complaints, Denies dysphagia and Denies odynophagia Card Reports no additional complaints Resp Reports no additional complaints GI Denies abdominal pain, Denies belching, Denies melena, Denies bloating, Denies change in bowel habits, Denies dysphagia, Denies excessive flatus, Denies dyspepsia, Denies heartburn, Denies diarrhea, Denies loose stools, Denies nausea, Denies odynophagia and Denies vomiting Reports no additional complaints Musc Reports no additional complaints Neuro Reports no additional complaints Psych Reports no additional complaints Endo Reports no additional complaints Physical Exam Vital Signs: Last Vital Signs Pulse 86 08/20/25 14:15 BP 142/86 H 08/20/25 14:15 Pulse Ox 98 08/20/25 14:15 Oxygen Delivery Method Room Air 08/20/25 14:15 BMI result Body Mass Index 24.5 Const General: healthy appearing, no acute distress and well developed Nutritional Appearance: well nourished Orientation/consciousness: patient oriented x3 Resp Effort & Inspection: normal respiratory effort, able to speak in complete sentences, no tracheal deviation and symmetric chest movement Auscultation: clear to auscultation bilaterally Cardio Rate: regular rate GI Inspection: Yes normal to inspection and No distended Palpation (GI): Soft to palpation, not firm, nontender and No hepatosplenomegaly present Auscultation: normal bowel sounds General: Yes no CVA tenderness Back/Spine/Pelvis Back: no CVA tenderness Skin General skin exam: elasticity normal, turgor normal and dry skin Neuro General: patient oriented x3 Psych Appearance: grossly normal Mental Status: mental status grossly normal Assessment & Plan Assessment & Plan (1) S/P laparoscopic cholecystectomy: Code(s): Z90.49 - Acquired absence of other specified parts of digestive tract Category: Surgical (2) GERD (gastroesophageal reflux disease): Code(s): K21.9 - Gastro-esophageal reflux disease without esophagitis Category: Medical Qualifiers: Esophagitis presence: without esophagitis Qualified Code(s): K21.9 - Gastro-esophageal reflux disease without esophagitis Plan Patient will continue taking Nexium. Avoid dietary triggers and late night snacking. Staying upright for minimal 3 hours after meals discussed with patient. Patient will follow-up in our office in 1 year. She was encouraged to call us if she will have any GI concerning symptoms. Patient is agreeable to this plan and verbalizes understanding of instructions. She was given the opportunity to ask questions and all questions answered. Thank you for allowing me to participate in her care Coding Level of Care Code Est Pt Level 3 (17801) Diagnoses S/P laparoscopic cholecystectomy Z90.49 Gastroesophageal reflux disease without esophagitis K21.9 Esophagitis presence: without esophagitis Time Spent (min) 30 Comment 20 minutes spent with patient and additional 10 minutes spent reviewing her records
[2025-08-20 14:15] VITALS: BP 142/86; PULSE 86; O2SAT 98; BMI 24.5
== END 2025-08-20 14:44 | disposition home or self-care (01) ==
LOC: HO.HGI 14:10
PROVIDERS: PCP Physician Assistant; Visit Provider Nurse Practitioner Family
DX: Z90.49 Acquired absence of other specified parts of digestive tract (principal); K21.9 Gastro-esophageal reflux disease without esophagitis
CPT/HCPCS: 99213